=== PATIENT | female | born 1940 | race Caucasian/White ===

== ENCOUNTER → 2017-09-20 | Outpatient (CLI) | payer MEDICARE ==
[~2017-09-20] MED LIST: ACETAMINOPHEN-1 EAC1 PO; ADULT LOW DOSE81 MG PO; AMLODIPINE BESY10 MG PO; BACTRIM DS TAB1 EACH PO; BLADDER PILL; BLOOD PRESSURE; CHILDREN'S ASPI81 M1 PO; CILOXAN5 ML OP; COUMADIN 2 MG TA2 M1; FISH OIL 1,0001 EAC5 PO; FISH OIL 1,001000 M2 PO; FLEXERIL PO; FUROSEMIDE 20 M20 MG PO; HYDROCHLOROTHIA25 M1 PO; IBUPROFEN 200200 M1 PO; OMEPRAZOLE40 MG PO; PERCOCET 10-321 EACH; PERCOCET 5-3251 EACH PO; POTASSIUM CHLO10 ME1 PO; ROBAXIN 750 MG750 M1 PO; ROXICODONE5 M1 PO; SYNTHROID100 MC1 PO; ULTRAM 50MG TAB50 MG PO; VITAMIN E400 UNIT PO
== END ==
LOC: M.RAD 10:33
DX: Z12.31 Encounter for screening mammogram for malignant neoplasm of breast (principal)

== ENCOUNTER → 2017-10-10 | Outpatient (CLI) | payer MEDICARE ==
--- NOTE | 2017-10-26 12:43 | SLEEP ---
[address] [address] SLEEP STUDY REPORT Name: SALVADOR CARDOZA Room: [facility]#: [id number] Admission: 10/10/17 Attend Phys: MERRY BUSCH Discharge: Date of : 40 Report #: [id number] THIS REPORT FOR: //name// CC: Marcello OLIVAREZ This study has been reviewed in its entirety by a board certified sleep specialist DATE OF SERVICE: 10/10/2017 REFERRING PHYSICIAN: Marcello Mcdonnell DO/MERRY Harrington. TYPE OF STUDY: Home sleep apnea test. INDICATION: Obstructive sleep apnea. This was a home sleep apnea test. During the study, the total recording time was 519.4 minutes. During the study, 73 obstructive apneas and 18 hypopneas were recorded. No central apneas were recorded. The overall apnea-hypopnea index was 10.6 per hour. Please note the whole study was recorded in the supine position. OXIMETRY DATA: It was noted, the average O2 saturation was 90%. The lowest O2 saturation recorded was 79%. The patient spent 113.5 minutes with O2 saturation less than 90%. Average heart rate was 79.1 and snoring was recorded during the study. IMPRESSION: 1. The above home sleep apnea test confirms the presence of obstructive sleep apnea with apnea-hypopnea index of 10.6 and oxygen desaturation to a dread of 79%. 2. Prolonged hypoxemia during the sleep. It was noted the patient spent 113.5 minutes with O2 saturation less than 90%. RECOMMENDATIONS: 1. If the patient is not on CPAP therapy, I recommend considering in Lab attended sleep study with the purpose of CPAP titration to determine the CPAP pressure that controls the patient's obstructive sleep apnea. She may need oxygen after controlling her obstructive sleep apnea. 2. If the patient continues to be hypoxemic after treating sleep apnea , recommend evaluation for intrinsic lung disease. <ELECTRONICALLY SIGNED> By: Roxana Velazquez MD 10/26/17 1243 1154 1216Roxana Velazquez MD /nt
== END ==
LOC: M.SLEEPLAB 09-05 11:00
DX: G47.30 Sleep apnea, unspecified (principal)

== ENCOUNTER 2018-04-05 15:22 | Emergency (ER) | payer MEDICARE ==
[~2018-04-05] VITALS: Ht 160 cm; Wt 59.0 kg
[~2018-04-05 15:22] MED LIST changes: -BACTRIM DS TAB1 EACH PO; -CHILDREN'S ASPI81 M1 PO; -FISH OIL 1,001000 M2 PO; -HYDROCHLOROTHIA25 M1 PO; -OMEPRAZOLE40 MG PO
[2018-04-05 15:56] LABS: HEMATOCRIT 41.8 % (37.0-47.0); HEMOGLOBIN 13.9 gm/dL (12.0-15.0); MCH 29.1 pg (26.0-34.0); MCHC 33.2 g/dL (28.0-37.0); MCV 87.6 fL (80.0-100.0); MPV 6.8 fl. (7.2-11.1); NUCLEATED RBCS 0 /100WBC; PLATELET COUNT* 352 thou/uL (150-400); RBC 4.78 mil/uL (4.20-5.00); RDW-CV 15.8 % (10.5-14.5); WBC 14.3 thou/uL (4.0-11.0)
[2018-04-05 16:06] LABS: ANION GAP 7 mmol/L (7-16); BUN 14 mg/dL (7-18); CALCIUM 8.8 mg/dL (8.5-10.1); CHLORIDE 102 mmol/L (98-107); CO2 27 mmol/L (21-32); CREATININE 0.7 mg/dL (0.6-1.3); GLUCOSE 132 mg/dL (70-99); POTASSIUM 3.7 mmol/L (3.5-5.1); SODIUM 136 mmol/L (136-145)
[2018-04-05 16:13] LABS: ALBUMIN 3.1 g/dL (3.4-5.0); ALKALINE PHOSPHATASE 97 U/L (46-116); SGOT 14 U/L (15-37); SGPT 18 U/L (30-65); TOTAL BILIRUBIN 0.4 mg/dL (<0.1-1.0); TOTAL PROTEIN 7.1 g/dL (6.4-8.2); TROPONIN-I LEVEL <0.06 ng/mL (<0.06)
[2018-04-05 16:49] LABS: ABSOLUTE LYMPHOCYTES 1.6 thou/uL (0.8-5.3); ABSOLUTE MONOCYTES 1.4 thou/uL (0.0-1.2); ABSOLUTE NEUTROPHILS 11.3 thou/uL (1.6-8.1)
[2018-04-05 16:50] LABS: PLATELET ESTIMATE ADEQUATE
[2018-04-05] MEDS ORDERED: BACTRIM DS TAB1 EACH PO (17:44)
[2018-04-05 17:54] VITALS: BP 208/80
== END 2018-04-05 17:50 | disposition home or self-care (01) ==
LOC: M.ERS 15:22
PROVIDERS: Nurse Practitioner Family
DX: K12.2 Cellulitis and abscess of mouth (principal); I10 Essential (primary) hypertension; G47.30 Sleep apnea, unspecified; F17.210 Nicotine dependence, cigarettes, uncomplicated; Z88.1 Allergy status to other antibiotic agents; Z88.6 Allergy status to analgesic agent; Z88.5 Allergy status to narcotic agent

== ENCOUNTER → 2018-04-07 | Outpatient (CLI) | payer MEDICARE ==
--- NOTE | 2018-04-06 16:36 | EKG ---
[place] [address] ELECTROCARDIOGRAM REPORT Name: SALVADOR CARDOZA Room: [facility]#: [id number] Admission: Attend Phys: Dexter Matias MD Discharge: Date of : 40 Report #: [id number] THIS REPORT FOR: //name// [facility] ED Test Date: 2018-04-05 Test Time: 15:56:38 Pat Name: SALVADOR CARDOZA Department: Room: Gender: F Life Skills Instructor: EDWIGE : 1940 Requested By: Loraine Morrissey Order Number: [id number] MD: Jose Jones Measurements Intervals [place] Rate: 104 P: 79 RI: 148 QRS: 24 QRSD: 89 T: 20 QT: 331 QTc: 436 Interpretive Statements Sinus tachycardia LAE, consider biatrial enlargement Left ventricular hypertrophy Nonspecific T abnormalities, inferior leads Baseline wander in lead(s) II,III,aVR,aVL,aVF,V1,V2,V3,V4,V5,V6 Compared to ECG 02/28/2009 23:22:40 Left ventricular hypertrophy now present T-wave abnormality now present Electronically Signed On 04-06-2018 16:36:22 CDT by Jose Jones [email or web address] <ELECTRONICALLY SIGNED> By: Jose Jones MD, [facility] 04/06/18 1636 1556 1556 Jose Jones MD, [facility] /EPI
[~2018-04-07] MED LIST changes: +BACTRIM DS TAB1 EACH PO; +CHILDREN'S ASPI81 M1 PO; +FISH OIL 1,001000 M2 PO; +HYDROCHLOROTHIA25 M1 PO; +OMEPRAZOLE40 MG PO
[2018-04-07 12:40] VITALS: BP 159/81
== END | disposition home or self-care (01) ==
LOC: M.RAD 04-04 09:52
DX: M43.16 Spondylolisthesis, lumbar region (principal); M51.16 Intervertebral disc disorders with radiculopathy, lumbar region; M43.26 Fusion of spine, lumbar region; M48.061 Spinal stenosis, lumbar region without neurogenic claudication; M41.86 Other forms of scoliosis, lumbar region; M99.73 Connective tissue and disc stenosis of intervertebral foramina of lumbar region; M25.78 Osteophyte, vertebrae; Z98.890 Other specified postprocedural states; Z88.8 Allergy status to other drugs, medicaments and biological substances; Z79.899 Other long term (current) drug therapy

== ENCOUNTER → 2018-04-20 | Outpatient (CLI) | payer MEDICARE | LOC: M.MRI 13:13 | DX: M51.36 Other intervertebral disc degeneration, lumbar region (principal); E32.8 Other diseases of thymus; I10 Essential (primary) hypertension; G47.33 Obstructive sleep apnea (adult) (pediatric); Z87.891 Personal history of nicotine dependence; Z72.89 Other problems related to lifestyle ==

== ENCOUNTER 2018-05-17 16:51 | Inpatient (IN) | payer MEDICARE ==
[~2018-05-17] VITALS: Ht 160 cm; Wt 59.1 kg
--- NOTE | ~2018-05-17 | CON ---
[address] [address] CONSULTATION Name: SALVADOR CARDOZA Room: [address] IN [facility]#: [id number] Admission: 05/17/18 Attend Phys: Jamal Sims MD Discharge: Date of : 40 Report #: [id number] THIS REPORT FOR: //name// CC: Marcello Sims DATE OF SERVICE: 05/18/2018 REASON FOR CONSULTATION: Persistent GERD and noncardiac chest pain. HISTORY OF PRESENT ILLNESS: This is a 78-year-old female with history of GERD for which she has been taking Tums. She reports that she has been having a lot of problems with acid reflux and severe pain in her chest. She admits to smoking and drinking soda pops. She denies any dysphagia, diarrhea or constipation. Her last colonoscopy was done 11 years ago. PAST MEDICAL HISTORY: Significant for history of hypertension and muscle pains. ALLERGIES: SIGNIFICANT FOR CEPHALEXIN, HYDROCODONE, AND TYLENOL. SOCIAL HISTORY: The patient lives at home. Admits to drinking caffeine and smoking cigarettes. She may occasionally have an alcoholic beverage, but that is rare. FAMILY HISTORY: Noncontributory. PHYSICAL EXAMINATION: VITAL SIGNS: Blood pressure of 138/72, respirations 18, pulse 78, temperature 97.9. LUNGS: Clear. CARDIOVASCULAR: Regular. ABDOMEN: Soft, tender to palpation in the epigastric region. Bowel sounds are positive. LABORATORY DATA: Revealed sodium of 139, potassium 3.2, BUN is 15, creatinine 0.8, glucose 101. LFTs are within normal limits. Total bilirubin is 0.4. WBC is 7.1 with hemoglobin of 14.4 and platelets of 296. IMAGING: Chest x-ray was obtained on admission, which showed no acute cardiopulmonary abnormality. ASSESSMENT AND PLAN: The patient with noncardiac chest pain who has severe reflux symptoms and chest pain due to the same. [place] [address] CONSULTATION Name: AMAIRANI CARDOZAANNE Adrienne Room: [address] IN [facility]#: [id number] Admission: 05/17/18 Attend Phys: Jamal Sims MD Discharge: Date of : 40 Report #: [id number] endoscopy and make further recommendation based on findings. The patient is agreeable with plan. By: [id number] [id number] Polanco MD /nt
--- NOTE | ~2018-05-17 | PROC ---
[facility] [place] [facility] [address] [place] [address] PROCEDURE REPORT Name: SALVADOR CARDOZA Room: [address] IN M.R.#: [id number] Admission: 05/17/18 Attend Phys: Jamal Sims MD Discharge: 05/19/18 Date of : 40 Report #: [id number] THIS REPORT FOR: //name// For GI report, please see the Provation report in Perceptive 7 content. By: 0638Medical Records Staff SHRUTI /BLOSSOM
[~2018-05-17 16:51] MED LIST changes: -CHILDREN'S ASPI81 M1 PO; -FISH OIL 1,001000 M2 PO; -HYDROCHLOROTHIA25 M1 PO; -OMEPRAZOLE40 MG PO
[2018-05-17 17:05] VITALS: BP 191/104
[2018-05-17 17:51] LABS: ABSOLUTE BASOPHILS 0.1 thou/uL (0.0-0.2); ABSOLUTE EOSINOPHILS 0.2 thou/uL (0.0-0.7); ABSOLUTE LYMPHOCYTES 1.5 thou/uL (0.8-5.3); ABSOLUTE MONOCYTES 0.5 thou/uL (0.0-1.2); ABSOLUTE NEUTROPHILS 4.9 thou/uL (1.6-8.1); BASOPHILS 1.3 %; EOSINOPHILS 2.1 %; HEMATOCRIT 44.1 % (37.0-47.0); HEMOGLOBIN 14.4 gm/dL (12.0-15.0); LYMPHOCYTES 20.6 %; MCH 29.1 pg (26.0-34.0); MCHC 32.6 g/dL (28.0-37.0); MCV 89.1 fL (80.0-100.0); MONOCYTES 6.8 %; MPV 7.2 fl. (7.2-11.1); NUCLEATED RBCS 0 /100WBC; PLATELET COUNT* 296 thou/uL (150-400); POLYS 69.2 %; RBC 4.95 mil/uL (4.20-5.00); RDW-CV 15.8 % (10.5-14.5); WBC 7.1 thou/uL (4.0-11.0)
[2018-05-17 18:00] LABS: ANION GAP 5 mmol/L (7-16); BUN 15 mg/dL (7-18); CALCIUM 10.7 mg/dL (8.5-10.1); CHLORIDE 102 mmol/L (98-107); CO2 32 mmol/L (21-32); CREATININE 0.8 mg/dL (0.6-1.3); GLUCOSE 101 mg/dL (70-99); POTASSIUM 3.2 mmol/L (3.5-5.1); SODIUM 139 mmol/L (136-145)
[2018-05-17 18:01] LABS: PROTIME 10.3 Seconds (9.20-11.50)
[2018-05-17 18:11] LABS: ALBUMIN 3.7 g/dL (3.4-5.0); ALKALINE PHOSPHATASE 92 U/L (46-116); LIPASE 132 U/L (73-393); NT-PRO BRAIN NAT PEPTIDE 385 pg/mL (<300); SGOT 18 U/L (15-37); SGPT 22 U/L (30-65); TOTAL BILIRUBIN 0.4 mg/dL (<0.1-1.0); TOTAL PROTEIN 7.3 g/dL (6.4-8.2); TROPONIN-I LEVEL <0.06 ng/mL (<0.06)
[2018-05-17 19:51] VITALS: BP 196/102
[2018-05-17] MEDS ORDERED: FISH OIL 1,001000 M2 PO (19:56)
[2018-05-17] MEDS ORDERED: CHILDREN'S ASPI81 M1 PO (19:57)
[2018-05-17 19:58] VITALS: BP 183/92
[2018-05-18] VITALS: BP 150/66
[2018-05-18 02:49] LABS: CHOLESTEROL 139 mg/dL (<200); HDL CHOLESTEROL 70 mg/dL (>40); LDL CHOLESTEROL 57 mg/dL (<100); TRIGLYCERIDE 64 mg/dL (<150); VLDL 13 mg/dL (<40)
[2018-05-18 02:52] LABS: SERUM ASSESSMENT CLEAR
[2018-05-18 04:00] VITALS: BP 123/61
--- NOTE | 2018-05-18 05:23 | NUR ---
PT ADMITTED TO FLOOR FROM ED AT 1945 WITH CHEST PAIN AND HTN. AXO X4, UP AD KAYLA, AND NPO.
--- NOTE | 2018-05-18 06:04 | NUR ---
THIS RN REVIEWED AND AGREES WITH [facility] STUDENT DMITRIY TREVINO. BED IN LOW POSIITON, CALL LIGHT IN REACH. PT UP AD KAYLA AND APPEARS STABLE ON HER FEET. HOURLY ROUNDING COMPLETED FOR PT SAFETY.
--- NOTE | 2018-05-18 12:13 | NUR ---
MET WITH PT TO DISCUSS HOME SITUATION/DC PLANNING. PT LIVES ALONE, HAS SUPPORTIVE FAMILY. PT USES NO EQUIPMENT. SHE DENIES ANY DC NEEDS. WILL FOLLOW
[2018-05-18 12:28] VITALS: BP 138/72
[2018-05-18 16:00] VITALS: BP 140/65
--- NOTE | 2018-05-18 16:59 | EKG ---
[place] [address] ELECTROCARDIOGRAM REPORT Name: SALVADOR CARDOZA Room: [address] ADM IN M.R.#: [id number] Admission: 05/17/18 Attend Phys: Jamal Sims MD Discharge: Date of : 40 Report #: [id number] THIS REPORT FOR: //name// [facility] ED Test Date: 2018-05-17 Test Time: 17:28:34 Pat Name: SALVADOR CARDOZA Department: Room: [facility] Gender: F Industrial Radiographer: Yue REED : 1940 Requested By: Cruzito Rojo Order Number: [id number] MD: Hugo Thakur Measurements Intervals [place] Rate: 88 P: 68 PA: 173 QRS: 12 QRSD: 89 T: 56 QT: 358 QTc: 434 Interpretive Statements Sinus rhythm Left atrial enlargement Compared to ECG 04/05/2018 15:56:38 Sinus tachycardia no longer present Left ventricular hypertrophy no longer present T-wave abnormality no longer present Electronically Signed On 05-18-2018 16:59:25 CDT by Hugo Thakur [email or web address] <ELECTRONICALLY SIGNED> By: Hugo Thakur MD, FACC 05/18/18 1659 1728 1728 Hugo Thakur MD, FACC /EPI
[2018-05-18 19:50] VITALS: BP 159/81
[2018-05-19] VITALS: BP 180/89
[2018-05-19 01:12] VITALS: BP 162/79
--- NOTE | 2018-05-19 02:11 | NUR ---
SENIOR QUALITY METHODS SPECIALIST IN PLACE AND RUNNING NSR. UP AD KAYLA AND ON ROOM AIR. STARTED NPO AT 0000. HOURLY ROUNDING COMPLETED FOR PT SAFETY. CALL LIGHT IN REACH AND FALL PRECAUTIONS IN PLACE. WILL CONTINUE TO MONITOR.
[2018-05-19 04:15] VITALS: BP 166/84
[2018-05-19 04:30] VITALS: BP 162/79
--- NOTE | 2018-05-19 05:09 | NUR ---
THIS RN REVIEWED AND AGREES WITH DMITRIY TREVINO [facility] STUDENT. PATIENT WAS CAUGHT SMOKING IN HER BATHROOM. SECURITY WAS CALLED AND CIGARRETTES AND RELIEF COOK PLACED INTO PERSONAL BELONGING BAG AND SENT WITH SECURITY.
[2018-05-19 08:55] VITALS: BP 153/72
[2018-05-19] MEDS ORDERED: OMEPRAZOLE40 MG PO (09:03)
[2018-05-19] MEDS ORDERED: HYDROCHLOROTHIA25 M1 PO (09:03)
[2018-05-19 10:54] VITALS: BP 153/72
--- NOTE | 2018-05-19 11:09 | NUR ---
RECEIVED REPORT FROM KIM AND ASSUMED CARE OF PT @ 0303.PT IS A/OX4,VSS,TRACING ST ON THE MONITOR.ASSESSMENT CHARTED.PT COMPLETED EGD PROCEDURE.IV PATENT AND SALINE LOCKED.PT IS CALM AND COOPERATIVE WITH NO C/O PAIN AT TIME OF ASSESSMENT.PT IS UP AD KAYLA IN ROOM.PT LEFT RESTING IN BED WITH CALL LIGHT WITHIN REACH.WILL CONTINUE TO MONITOR. PT OK FOR DISCHARGE.PAPERWORK COMPLETED AND GIVEN TO PT.SCRIPTS GIVEN WITH EDUCATION.IV REMOVED.HEART MONITOR REMOVED AND RETURNED TO THE NURSING STATION.ALL PERSONAL BELONGINGS PACKED AND TAKEN WITH PT.BELONGINGS RECOVERED FROM SECURITY AND SIGNED FOR.
--- NOTE | 2018-05-24 10:09 | PATH ---
[address] [address] PATHOLOGY RPT PROCEDURE Name: SALVADOR BERGMAN Room: [address] IN M.R.#: [id number] Admission: 05/17/18 Date of : 40 Discharge: 05/19/18 Report #: [id number] Path Case #: [id number] [facility] Accession Number: [id number] . 01 Material submitted: . PART A: DUODENAL BIOPSY; RULE OUT CELIAC PART B: GASTRIC BIOPSY FOR H. PYLORI . 01 Clinician provided ICD-10: R07.9 . 01 Clinical history: . None provided . 02 Diagnosis: A. Duodenal biopsy: - Benign duodenal mucosa with prominence of Shirley's glands suggesting hyperplasia, negative for cryptitis, granulomas, significant intraepithelial lymphocytosis and dysplasia/adenomatous change (see comment). . B. Gastric biopsy: - Mild chronic and focal active gastritis typical of reactive gastropathy (chemical gastritis), negative for Helicobacter pylori organisms, granulomas and dysplasia. . (TIFFANIE:vjmbernie;05/22/2018) . . Special stain on B: H. pylori immuno AGA/05/23/2018 . 02 Comment: In the duodenal biopsy (A), there is no significant intraepithelial lymphocytosis and therefore celiac disease is unlikely. (TIFFANIE:pit 05/23/2018) . 02 Electronically signed: . Cezar Montana MD, Pathologist NPI- [id number] . 01 Gross description: . A. Received in formalin labeled "Salvador Bergman, duodenal biopsy, rule out celiac," is a single segment of robles soft tissue measuring 0.6 cm in maximum dimension. The specimen is entirely submitted in cassette A1. . B. Received in formalin labeled "Salvador Bergman, gastric biopsy for H. pylori," are 3 segments of robles soft tissue measuring 0.9 x 0.6 x 0.2 [place] [address] PATHOLOGY RPT PROCEDURE Name: SALVADOR BERGMAN N Room: [address]#: [id number] Admission: 05/17/18 Date of : 40 Discharge: 05/19/18 Report #: [id number] Path Case #: [id number] aggregate dimensions and ranging from 0.2 to 0.5 cm in maximum dimension. The specimen is submitted entirely in cassette B1. (TSD; 05/19/2018) TOB/TOB . 02 Pathologist provided ICD-10: K29.50 . 02 CPT . 052233, 916553, O68083 Specimen Comment: A courtesy copy of this report has been sent to Specimen Comment: [phone], , . Specimen Comment: Report sent to ,DR SALMERON / DR SIMMONS Specimen Comment: A duplicate report has been generated due to demographic updates. Performed at: [address] [facility] [address], [place], [place] [id number] MD Uriel Watts MD Phone: [phone] Performed at: [address] [facility] [address] [place], [place] [id number] MD Cezar Montana MD Phone: [phone]
== END 2018-05-19 11:20 | disposition home or self-care (01) | DRG 392 ==
LOC: M.ERS 16:51 → M.2W 18:21 → M.TBA-ER 18:21 → M.2W 19:55
PROVIDERS: Emergency Medicine; ADMIT Internal Medicine
PROC: 0DB68ZX Excision of Stomach, Via Natural or Artificial Opening Endoscopic, Diagnostic (ICD-10-PCS; principal; 2018-05-19)
DX: K21.0 Gastro-esophageal reflux disease with esophagitis (principal); I16.1 Hypertensive emergency; F17.210 Nicotine dependence, cigarettes, uncomplicated; E03.9 Hypothyroidism, unspecified; K29.70 Gastritis, unspecified, without bleeding; K29.80 Duodenitis without bleeding; I10 Essential (primary) hypertension; Z98.42 Cataract extraction status, left eye; Z98.41 Cataract extraction status, right eye; Z88.6 Allergy status to analgesic agent; Z88.8 Allergy status to other drugs, medicaments and biological substances; Z82.49 Family history of ischemic heart disease and other diseases of the circulatory system; Z79.899 Other long term (current) drug therapy; Z28.21 Immunization not carried out because of patient refusal

== ENCOUNTER → 2018-07-26 | Outpatient (CLI) | payer MEDICARE ==
[~2018-07-26] MED LIST changes: +CHILDREN'S ASPI81 M1 PO; +FISH OIL 1,001000 M2 PO; +HYDROCHLOROTHIA25 M1 PO; +OMEPRAZOLE40 MG PO
== END ==
LOC: M.ULTRA 10:08
DX: N63.21 Unspecified lump in the left breast, upper outer quadrant (principal); N63.10 Unspecified lump in the right breast, unspecified quadrant; R92.2 Inconclusive mammogram

== ENCOUNTER → 2018-10-05 | Outpatient (CLI) | payer MEDICARE | LOC: M.RAD 15:16 | DX: Z12.31 Encounter for screening mammogram for malignant neoplasm of breast (principal) ==

== ENCOUNTER 2018-11-25 07:30 | Emergency (ER) | payer MEDICARE ==
[~2018-11-25] VITALS: Ht 160 cm; Wt 54.4 kg
[~2018-11-25 07:30] MED LIST changes: -SYNTHROID100 MC1 PO; +SYNTHROID25 MC1 PO
[2018-11-25] MEDS ORDERED: MAGNESIUM400 MG PO (07:43)
[2018-11-25] MEDS ORDERED: OCUVITE ADULT1 EAC1 PO (07:43)
[2018-11-25] MEDS ORDERED: VESICARE10 M1 PO (07:43)
[2018-11-25 08:23] LABS: ABSOLUTE EOSINOPHILS 0.4 thou/uL (0.0-0.7); ABSOLUTE LYMPHOCYTES 1.2 thou/uL (0.8-5.3); ABSOLUTE MONOCYTES 0.5 thou/uL (0.0-1.2); ABSOLUTE NEUTROPHILS 3.7 thou/uL (1.6-8.1); BASOPHILS 0.2 %; EOSINOPHILS 6.3 %; HEMOGLOBIN 14.9 gm/dL (12.0-15.0); LYMPHOCYTES 20.8 %; MCH 28.1 pg (26.0-34.0); MCHC 33.1 g/dL (28.0-37.0); MCV 84.9 fL (80.0-100.0); MONOCYTES 8.7 %; MPV 7.2 fl. (7.2-11.1); NUCLEATED RBCS 0 /100WBC; PLATELET COUNT* 324 thou/uL (150-400); RDW-CV 15.9 % (10.5-14.5); WBC 5.8 thou/uL (4.0-11.0)
[2018-11-25] MEDS ORDERED: BACTRIM DS TAB1 EACH PO (08:43)
[2018-11-25 08:49] LABS: CALCIUM 9.3 mg/dL (8.5-10.1); CREATININE 1.3 mg/dL (0.6-1.3); POTASSIUM 4.4 mmol/L (3.5-5.1)
[2018-11-25 08:50] VITALS: BP 137/69
== END 2018-11-25 08:50 | disposition home or self-care (01) ==
LOC: M.ERS 07:30
PROVIDERS: Personal Emergency Response Attendant
DX: S50.11XA Contusion of right forearm, initial encounter (principal); I80.8 Phlebitis and thrombophlebitis of other sites; F17.210 Nicotine dependence, cigarettes, uncomplicated; I10 Essential (primary) hypertension; G47.30 Sleep apnea, unspecified; Z88.1 Allergy status to other antibiotic agents; Z88.6 Allergy status to analgesic agent; Z88.8 Allergy status to other drugs, medicaments and biological substances; X50.1XXA Overexertion from prolonged static or awkward postures, initial encounter; Y92.89 Other specified places as the place of occurrence of the external cause; Y93.89 Activity, other specified; Y99.8 Other external cause status

== ENCOUNTER 2019-02-26 10:11 | Inpatient (IN) | payer MEDICARE ==
[~2019-02-26] VITALS: Ht 160 cm; Wt 57.2 kg
[~2019-02-26 10:11] MED LIST changes: +MAGNESIUM400 MG PO; +OCUVITE ADULT1 EAC1 PO; +VESICARE10 M1 PO
[2019-02-26 10:16] VITALS: BP 154/73
[2019-02-26] MEDS ORDERED: VESICARE10 M1 PO (10:44)
[2019-02-26] MEDS ORDERED: MAGOX 400400 MG PO (10:44)
[2019-02-26] MEDS ORDERED: OXYBUTYNIN ER PO (10:45)
[2019-02-26] MEDS ORDERED: NITROFURANTOIN100 MG PO (10:45)
[2019-02-26 10:55] LABS: HEMATOCRIT 39.9 % (37.0-47.0); HEMOGLOBIN 13.3 gm/dL (12.0-15.0); MCH 28.5 pg (26.0-34.0); MCHC 33.3 g/dL (28.0-37.0); MCV 85.6 fL (80.0-100.0); MPV 7.4 fl. (7.2-11.1); NUCLEATED RBCS 0 /100WBC; PLATELET COUNT* 280 thou/uL (150-400); RBC 4.66 mil/uL (4.20-5.00); RDW-CV 16.8 % (10.5-14.5); WBC 9.8 thou/uL (4.0-11.0)
[2019-02-26 11:02] LABS: CALCIUM 9.2 mg/dL (8.5-10.1); CREATININE 1.2 mg/dL (0.6-1.3); POTASSIUM 4.2 mmol/L (3.5-5.1)
[2019-02-26 11:07] LABS: ALBUMIN 3.4 g/dL (3.4-5.0)
[2019-02-26 11:54] LABS: ABSOLUTE BASOPHILS 0.1 thou/uL (0.0-0.2); ABSOLUTE EOSINOPHILS 0.2 thou/uL (0.0-0.7); ABSOLUTE LYMPHOCYTES 0.9 thou/uL (0.8-5.3); ABSOLUTE MONOCYTES 0.5 thou/uL (0.0-1.2); ABSOLUTE NEUTROPHILS 8.1 thou/uL (1.6-8.1); PLATELET ESTIMATE ADEQUATE
[2019-02-26 12:08] LABS: TOTAL BILIRUBIN 0.3 mg/dL (<0.1-1.0); TOTAL PROTEIN 7.1 g/dL (6.4-8.2)
[2019-02-26 13:13] LABS: URINE BILIRUBIN NEGATIVE (Negative); URINE BLOOD NEGATIVE (Negative); URINE CLARITY CLEAR; URINE COLOR YELLOW; URINE GLUCOSE-RANDOM NEGATIVE (Negative); URINE KETONES TRACE (Negative); URINE LEUKOCYTES-REFLEX NEGATIVE (Negative); URINE NITRITE-REFLEX NEGATIVE (Negative); URINE PROTEIN NEGATIVE (Negative); URINE UROBILINOGEN 0.2 E.U./dl (0.2-1.0)
[2019-02-26 15:47] VITALS: BP 112/55
[2019-02-26 16:30] VITALS: BP 120/54
[2019-02-26 16:35] VITALS: BP 132/71
[2019-02-26 20:00] VITALS: BP 132/74
[2019-02-26 23:43] VITALS: BP 120/42
[2019-02-27 04:27] VITALS: BP 106/47
[2019-02-27 08:00] VITALS: BP 132/65
--- NOTE | 2019-02-27 10:29 | EKG ---
[place] [address] ELECTROCARDIOGRAM REPORT Name: SALVADOR CARDOZA Room: [address] ADM IN M.R.#: [id number] Admission: 02/26/19 Attend Phys: Fritz Jensen Discharge: Date of : 40 Report #: [id number] THIS REPORT FOR: //name// [facility] ED Test Date: 2019-02-26 Test Time: 10:57:13 Pat Name: SALVADOR CARDOZA Department: Room: [facility] Gender: F Compensation Programs Manager: : 1940 Requested By: Ladarius Werner Order Number: [id number] MD: Hugo Thakur Measurements Intervals [place] Rate: 82 P: 72 ND: 175 QRS: 39 QRSD: 97 T: 56 QT: 399 QTc: 466 Interpretive Statements Sinus rhythm Compared to ECG 05/17/2018 17:28:34 No significant changes Electronically Signed On 02-27-2019 10:29:19 CDT by Hugo Thakur [email or web address] <ELECTRONICALLY SIGNED> By: Hugo Thakur MD, [facility] 02/27/19 1029 1057 1057 Hugo Thakur MD, FAC /EPI
[2019-02-27 12:00] VITALS: BP 150/71
[2019-02-27 16:00] VITALS: BP 150/64
[2019-02-27 20:45] VITALS: BP 177/67
[2019-02-28] VITALS: BP 164/82
[2019-02-28 04:00] VITALS: BP 170/91
[2019-02-28 07:30] VITALS: BP 166/84
[2019-02-28 12:00] VITALS: BP 161/81
[2019-02-28] MEDS ORDERED: LEVAQUIN 500 M500 M3 PO (12:31)
[2019-02-28] MEDS ORDERED: TYLENOL325 M1 PO (12:39)
[2019-02-28 12:45] VITALS: BP 161/81
== END 2019-02-28 13:47 | disposition home or self-care (01) | DRG 543 ==
LOC: M.ERS 10:11 → M.TBA-ER 11:49 → M.2W 11:49
PROVIDERS: Physician Assistant; ADMIT Internal Medicine
DX: M80.08XA Age-related osteoporosis with current pathological fracture, vertebra(e), initial encounter for fracture (principal); N39.0 Urinary tract infection, site not specified; L03.818 Cellulitis of other sites; G47.30 Sleep apnea, unspecified; N39.41 Urge incontinence; R33.9 Retention of urine, unspecified; K21.0 Gastro-esophageal reflux disease with esophagitis; E03.9 Hypothyroidism, unspecified; F17.210 Nicotine dependence, cigarettes, uncomplicated; I80.8 Phlebitis and thrombophlebitis of other sites; K29.70 Gastritis, unspecified, without bleeding; K29.80 Duodenitis without bleeding; T14.8XXA Other injury of unspecified body region, initial encounter; X58.XXXA Exposure to other specified factors, initial encounter; I10 Essential (primary) hypertension; Z98.41 Cataract extraction status, right eye; Z98.42 Cataract extraction status, left eye; Z79.82 Long term (current) use of aspirin; Z88.8 Allergy status to other drugs, medicaments and biological substances; Z88.6 Allergy status to analgesic agent; Z82.49 Family history of ischemic heart disease and other diseases of the circulatory system; Y93.89 Activity, other specified; Y92.89 Other specified places as the place of occurrence of the external cause; Y99.8 Other external cause status

== ENCOUNTER 2019-08-30 14:51 | Inpatient (IN) | payer MEDICARE ==
[~2019-08-30] VITALS: Ht 160 cm; Wt 54.4 kg
[~2019-08-30 14:51] MED LIST changes: +LEVAQUIN 500 M500 M3 PO; +MAGOX 400400 MG PO; +NITROFURANTOIN100 MG PO; +OXYBUTYNIN ER PO; +TYLENOL325 M1 PO
[2019-08-30 14:54] VITALS: BP 179/96
[2019-08-30 16:01] LABS: HEMOGLOBIN 13.3 gm/dL (12.0-15.0); MCHC 33.3 g/dL (28.0-37.0); MCV 84.1 fL (80.0-100.0); MPV 7.2 fl. (7.2-11.1); NUCLEATED RBCS 0 /100WBC; PLATELET COUNT* 265 thou/uL (150-400); RBC 4.75 mil/uL (4.20-5.00); WBC 15.7 thou/uL (4.0-11.0)
[2019-08-30 16:17] LABS: CALCIUM 8.6 mg/dL (8.5-10.1); CREATININE 0.9 mg/dL (0.6-1.3); POTASSIUM 3.9 mmol/L (3.5-5.1)
[2019-08-30 16:24] LABS: PROTIME 10.7 Seconds (9.20-11.50)
[2019-08-30 16:27] LABS: ABSOLUTE LYMPHOCYTES 1.4 thou/uL (0.8-5.3); ABSOLUTE MONOCYTES 0.9 thou/uL (0.0-1.2); ABSOLUTE NEUTROPHILS 13.3 thou/uL (1.6-8.1); PLATELET ESTIMATE ADEQUATE
[2019-08-30 16:29] LABS: ALBUMIN 3.1 g/dL (3.4-5.0); TOTAL BILIRUBIN 0.8 mg/dL (<0.1-1.0)
[2019-08-30 18:10] VITALS: BP 173/73
[2019-08-30 18:45] VITALS: BP 163/69
[2019-08-30 21:50] VITALS: BP 149/79
[2019-08-31 04:29] LABS: ALBUMIN 2.6 g/dL (3.4-5.0); CALCIUM 7.8 mg/dL (8.5-10.1); CREATININE 0.7 mg/dL (0.6-1.3); POTASSIUM 3.7 mmol/L (3.5-5.1); TOTAL BILIRUBIN 0.8 mg/dL (<0.1-1.0); TOTAL PROTEIN 6.1 g/dL (6.4-8.2)
[2019-08-31 04:35] LABS: ABSOLUTE EOSINOPHILS 0.1 thou/uL (0.0-0.7); ABSOLUTE LYMPHOCYTES 1.1 thou/uL (0.8-5.3); ABSOLUTE MONOCYTES 1.1 thou/uL (0.0-1.2); ABSOLUTE NEUTROPHILS 9.4 thou/uL (1.6-8.1); BASOPHILS 0.3 %; EOSINOPHILS 0.6 %; HEMATOCRIT 36.4 % (37.0-47.0); HEMOGLOBIN 12.2 gm/dL (12.0-15.0); LYMPHOCYTES 9.8 %; MCH 28.1 pg (26.0-34.0); MCHC 33.5 g/dL (28.0-37.0); MCV 83.9 fL (80.0-100.0); MPV 7.7 fl. (7.2-11.1); NUCLEATED RBCS 0 /100WBC; PLATELET COUNT* 221 thou/uL (150-400); POLYS 80.3 %; RBC 4.33 mil/uL (4.20-5.00); RDW-CV 16.6 % (10.5-14.5); WBC 11.7 thou/uL (4.0-11.0)
[2019-08-31 08:45] VITALS: BP 153/81
--- NOTE | 2019-08-31 09:42 | EKG ---
[place] [address] ELECTROCARDIOGRAM REPORT Name: SALVADOR CARDOZA Room: [address] ADM IN M.R.#: [id number] Admission: 08/30/19 Attend Phys: Khanh Turpin Discharge: Date of : 40 Date of Service: 08/30/19 1536 Report #: [id number] THIS REPORT FOR: //name// [facility] ED Test Date: 2019-08-30 Test Time: 15:36:35 Pat Name: SALVADOR CARDOZA Department: Room: [facility] Gender: F Correctional Maintenance Technician: : 1940 Requested By: Cruzito Rojo Order Number: [id number] MD: Jose Jones Measurements Intervals [place] Rate: 103 P: 85 [place]: 171 QRS: 64 QRSD: 90 T: 47 QT: 352 QTc: 461 Interpretive Statements Sinus tachycardia Biatrial enlargement Compared to ECG 02/26/2019 10:57:13 Atrial abnormality now present Sinus rate has increased Electronically Signed On 08-31-2019 9:41:15 MOBILE LAB TECHNICIAN by Jose Jones [email or web address] <ELECTRONICALLY SIGNED> By: Jose Jones MD, [facility] 08/31/19 0941 1536 1536 Jose Jones MD, [facility] /EPI
--- NOTE | 2019-08-31 13:51 | EKG ---
[place] [address] ELECTROCARDIOGRAM REPORT Name: SALVADOR CARDOZA Room: [address] ADM IN M.R.#: [id number] Admission: 08/30/19 Attend Phys: Khanh Turpin Discharge: Date of : 40 Date of Service: 08/31/19 1219 Report #: [id number] THIS REPORT FOR: //name// [facility] Test Date: 2019-08-31 Test Time: 12:19:04 Pat Name: SALVADOR SONY Department: Room: [address] Gender: F [employer]: : 1940 Requested By: Khanh Turpin Order Number: [id number] Shanika MD: Jose Jones Measurements Intervals [place] Rate: 99 P: 84 [place]: 157 QRS: 59 QRSD: 85 T: 68 QT: 344 QTc: 442 Interpretive Statements Sinus rhythm Consider left atrial enlargement Consider left ventricular hypertrophy Compared to ECG 08/30/2019 15:36:35 Sinus tachycardia no longer present Electronically Signed On 08-31-2019 13:50:07 GROUND SYSTEMS ENGINEER by Jose Jones [email or web address] <ELECTRONICALLY SIGNED> By: Jose Jones MD, FAC 08/31/19 1350 1219 1219 Jose Jones MD, [facility] /EPI
[2019-08-31 17:30] VITALS: BP 158/69
[2019-08-31 20:05] VITALS: BP 134/66
[2019-09-01] VITALS: BP 135/77
[2019-09-01 03:00] VITALS: BP 125/54
[2019-09-01 04:25] LABS: ABSOLUTE LYMPHOCYTES 0.8 thou/uL (0.8-5.3); ABSOLUTE MONOCYTES 1.2 thou/uL (0.0-1.2); ABSOLUTE NEUTROPHILS 8.3 thou/uL (1.6-8.1); BASOPHILS 0.1 %; HEMOGLOBIN 10.5 gm/dL (12.0-15.0); LYMPHOCYTES 7.9 %; MCH 28.3 pg (26.0-34.0); MCHC 33.9 g/dL (28.0-37.0); MCV 83.6 fL (80.0-100.0); MONOCYTES 11.7 %; MPV 7.3 fl. (7.2-11.1); NUCLEATED RBCS 0 /100WBC; PLATELET COUNT* 181 thou/uL (150-400); POLYS 80.3 %; RBC 3.71 mil/uL (4.20-5.00); RDW-CV 16.4 % (10.5-14.5); WBC 10.3 thou/uL (4.0-11.0)
[2019-09-01 04:58] LABS: ALBUMIN 2.1 g/dL (3.4-5.0); CALCIUM 8.2 mg/dL (8.5-10.1); CREATININE 0.5 mg/dL (0.6-1.3); POTASSIUM 4.1 mmol/L (3.5-5.1); TOTAL BILIRUBIN 0.6 mg/dL (<0.1-1.0); TOTAL PROTEIN 5.5 g/dL (6.4-8.2)
[2019-09-01 08:00] VITALS: BP 120/57
--- NOTE | 2019-09-01 08:05 | OP ---
[facility] [address] [place] [address] OPERATIVE REPORT Name: SALVADOR CARDOZA Room: [address] IN .R.#: [id number] Admission: 08/30/19 Attend Phys: Fritz Jensen Discharge: Date of : 40 Report #: [id number] THIS REPORT FOR: //name// cc: Marcello Mcdonnell Bradley L. DO ~ THIS REPORT FOR: //name// CC: Marcello Turpin DATE OF SERVICE: 08/31/2019 PREOPERATIVE DIAGNOSIS: Comminuted intertrochanteric hip fracture on the right side with history of multiple other fractures. POSTOPERATIVE DIAGNOSES: 1. Comminuted intertrochanteric hip fracture on the right side with history of multiple other fractures. 2. The patient is a tobacco user as well, chronic. SURGERY PERFORMED: Lyndsay long gamma nail size 11 x 125 x 380. SURGEON: Allen Jaquez DO QUALITY CHECKER: Hong Cheung DO. SECOND SALES OFFICE ASSISTANT: Dariel Salazar DO ANESTHESIA: General anesthetic. ANTIBIOTICS: The patient has been on chronic Levaquin antibiotics. SPECIMENS: None. COMPLICATIONS: None. DRAINS: None. ESTIMATED BLOOD LOSS: 50 mL. GROSS FINDINGS: Prior to surgery, the patient demonstrated a very comminuted intertrochanteric hip fracture. A large posterior fracture fragment was identified. Placement of the nail demonstrated near anatomic reduction AP and lateral views. SURGERY IN DETAIL: The patient was taken to the operating room. While on her [address] [place] [address] OPERATIVE REPORT Name: SALVADOR CARDOZA Adrienne Room: [address] IN M.R.#: [id number] Admission: 08/30/19 Attend Phys: Fritz Jensen Discharge: Date of : 40 Report #: [id number] bed, given a general anesthetic and transferred over onto the [place] fracture table. At this point in time, using C-arm guidance, I did direct the C-arm throughout surgery, but initially did a closed reduction using the table to help reduce the fracture verified in AP and lateral views. At this point in time, she underwent a chlorhexidine prep and sterile draping for right hip surgery and femur surgery. Timeout was called and verified by everyone in the room for the right hip and femur. At this point in time, a starting incision made just proximal to the greater trochanter, but slightly posterior to the medial aspect that with a 10 blade scalpel through skin and subcutaneous tissues, the tensor and IT band area. Blunt dissection was carried down to the greater trochanter followed with a starting guidewire, which was appropriately viewed in both AP and lateral views and then the starting reamer was applied. Next, I placed a long guidewire down into the femoral canal down to the level of the knee, measured the guidewire for the length of the IM nail, 388 nail was selected. I appropriately reamed the shaft to 13 mm and then placed 380 x 125 x 11 mm gamma nail over the guidewire inserting into appropriate position and the guidewire was removed. The lag screw guide was next placed and at this point in time, the incision was made. The lag screw targeting guide was placed in the tissue down to the level of bone. Appropriately the guidewire was drilled. It was measured and I selected 100 lag screws. Appropriately reamed it and placed it with a compression screw tightening the fracture and then placed in the set screw. Once the proximal end was securely fixated, I removed all the proximal guide, I went down to the distal screws. At this point in time from a lateral and a freehand targeting, I did make 2 screw placements distally into the patient's femur. Appropriately, they were drilled, measured and screws were applied. The patient did have copious irrigation prior to closure. Now at this point in time, the deep layers were closed with 0 Vicryl in [id number] fashion, subcutaneous tissues with 2-0 Vicryl followed by cornel in the skin, Mepilex dressings and ABDs proximally. The patient was transferred off the table, taken to recovery in stable condition. I attest I was present for all critical aspects of surgery. Needle, instrument, sponge counts correct. <ELECTRONICALLY SIGNED> By: Allen Jaquez DO 09/01/19 0805 1557 [email or web address] Jaquez DO /nt
[2019-09-01 20:20] VITALS: BP 118/64
[2019-09-02 04:00] VITALS: BP 130/60
[2019-09-02 04:05] LABS: ABSOLUTE BASOPHILS 0.1 thou/uL (0.0-0.2); ABSOLUTE EOSINOPHILS 0.1 thou/uL (0.0-0.7); ABSOLUTE MONOCYTES 1.2 thou/uL (0.0-1.2); ABSOLUTE NEUTROPHILS 6.6 thou/uL (1.6-8.1); BASOPHILS 0.7 %; EOSINOPHILS 0.6 %; HEMATOCRIT 30.1 % (37.0-47.0); HEMOGLOBIN 10.3 gm/dL (12.0-15.0); LYMPHOCYTES 11.4 %; MCH 28.3 pg (26.0-34.0); MCHC 34.1 g/dL (28.0-37.0); MCV 83.2 fL (80.0-100.0); MONOCYTES 13.7 %; MPV 7.1 fl. (7.2-11.1); NUCLEATED RBCS 0 /100WBC; PLATELET COUNT* 209 thou/uL (150-400); POLYS 73.6 %; RBC 3.62 mil/uL (4.20-5.00); RDW-CV 15.7 % (10.5-14.5)
[2019-09-02 04:24] LABS: ALBUMIN 2.1 g/dL (3.4-5.0); CALCIUM 8.1 mg/dL (8.5-10.1); CREATININE 0.6 mg/dL (0.6-1.3); POTASSIUM 3.8 mmol/L (3.5-5.1); TOTAL BILIRUBIN 0.5 mg/dL (<0.1-1.0); TOTAL PROTEIN 5.6 g/dL (6.4-8.2)
[2019-09-02 07:20] VITALS: BP 137/62
[2019-09-02 15:51] VITALS: BP 159/89
[2019-09-02 19:45] VITALS: BP 133/69
[2019-09-03 04:00] VITALS: BP 145/71
[2019-09-03 04:22] LABS: ABSOLUTE BASOPHILS 0.1 thou/uL (0.0-0.2); ABSOLUTE EOSINOPHILS 0.1 thou/uL (0.0-0.7); ABSOLUTE LYMPHOCYTES 1.1 thou/uL (0.8-5.3); ABSOLUTE MONOCYTES 1.6 thou/uL (0.0-1.2); ABSOLUTE NEUTROPHILS 8.2 thou/uL (1.6-8.1); BASOPHILS 0.5 %; HEMATOCRIT 30.9 % (37.0-47.0); HEMOGLOBIN 10.4 gm/dL (12.0-15.0); LYMPHOCYTES 9.8 %; MCH 28.3 pg (26.0-34.0); MCHC 33.7 g/dL (28.0-37.0); MCV 83.8 fL (80.0-100.0); MONOCYTES 14.4 %; NUCLEATED RBCS 0 /100WBC; PLATELET COUNT* 229 thou/uL (150-400); POLYS 74.3 %; RBC 3.68 mil/uL (4.20-5.00); RDW-CV 16.1 % (10.5-14.5)
[2019-09-03 04:36] LABS: CREATININE 0.7 mg/dL (0.6-1.3)
[2019-09-03 07:15] VITALS: BP 127/61
[2019-09-03 21:45] VITALS: BP 166/70
[2019-09-04 01:08] LABS: URINE BILIRUBIN NEGATIVE (Negative); URINE BLOOD 3+ (Negative); URINE CLARITY CLEAR; URINE COLOR YELLOW; URINE GLUCOSE-RANDOM NEGATIVE (Negative); URINE KETONES NEGATIVE (Negative); URINE LEUKOCYTES 3+ (Negative); URINE NITRITE NEGATIVE (Negative); URINE PROTEIN NEGATIVE (Negative); URINE SPECIFIC GRAVITY <= 1.005 (1.005-1.030); URINE UROBILINOGEN 0.2 E.U./dl (0.2-1.0)
[2019-09-04 03:38] LABS: CASTS None Seen /LPF (None Seen); SQUAMOUS >10 Many /LPF (0-3)
[2019-09-04 03:39] LABS: URINE RBC 0-2 Rare /HPF (0-2)
[2019-09-04 03:40] LABS: CRYSTALS None Seen /LPF (None Seen)
[2019-09-04 09:41] VITALS: BP 143/68
[2019-09-04 11:16] VITALS: BP 143/68
[2019-09-04] MEDS ORDERED: ELIQUIS2.5 MG PO (11:20)
[2019-09-04] MEDS ORDERED: COLACE100 MG PO (11:20)
[2019-09-04] MEDS ORDERED: LIDODERM1 EACH TRANSDERM (11:21)
[2019-09-04] MEDS ORDERED: MIRALAX119 GM PO (11:21)
[2019-09-04] MEDS ORDERED: OXYBUTYNIN 5 MG5 M1 PO (11:22)
[2019-09-04] MEDS ORDERED: TRAMADOL 50 MG50 MG PO (11:23)
[2019-09-04] MEDS ORDERED: LEVAQUIN 500 M500 M3 PO (11:24)
[2019-09-04] MEDS ORDERED: OXYCODONE HCL 55 MG PO (11:26)
[2019-09-04 16:00] VITALS: BP 154/70
== END 2019-09-04 18:51 | DRG 854 ==
LOC: M.ERS 14:51 → M.TBA-ER 16:53 → M.ORTHSURG 16:53
PROVIDERS: Emergency Medicine; Internal Medicine; ADMIT Internal Medicine
PROC: 0QS606Z Reposition Right Upper Femur with Intramedullary Internal Fixation Device, Open Approach (ICD-10-PCS; principal; 2019-08-31)
PROC: 5A09357 Assistance with Respiratory Ventilation, Less than 24 Consecutive Hours, Continuous Positive Airway Pressure (ICD-10-PCS; principal; 2019-08-31)
DX: A41.50 Gram-negative sepsis, unspecified (principal); N39.0 Urinary tract infection, site not specified; E44.0 Moderate protein-calorie malnutrition; M80.851A Other osteoporosis with current pathological fracture, right femur, initial encounter for fracture; Z96.651 Presence of right artificial knee joint; F17.210 Nicotine dependence, cigarettes, uncomplicated; N31.9 Neuromuscular dysfunction of bladder, unspecified; I10 Essential (primary) hypertension; G47.33 Obstructive sleep apnea (adult) (pediatric); E03.9 Hypothyroidism, unspecified; M19.90 Unspecified osteoarthritis, unspecified site; K21.9 Gastro-esophageal reflux disease without esophagitis; Z60.2 Problems related to living alone; Z82.49 Family history of ischemic heart disease and other diseases of the circulatory system; Z99.81 Dependence on supplemental oxygen; Z68.21 Body mass index [BMI] 21.0-21.9, adult; Z98.42 Cataract extraction status, left eye; Z98.41 Cataract extraction status, right eye; Z79.899 Other long term (current) drug therapy; Z79.82 Long term (current) use of aspirin; Z88.1 Allergy status to other antibiotic agents; Z88.5 Allergy status to narcotic agent; Z72.89 Other problems related to lifestyle

== ENCOUNTER 2019-09-04 17:44 | Inpatient (IN) | payer MEDICARE ==
[~2019-09-04] VITALS: Ht 160 cm; Wt 54.0 kg
[~2019-09-04 17:44] MED LIST changes: +COLACE100 MG PO; +ELIQUIS2.5 MG PO; +LIDODERM1 EACH TRANSDERM; +MIRALAX119 GM PO; +OXYBUTYNIN 5 MG5 M1 PO; +OXYCODONE HCL 55 MG PO; +TRAMADOL 50 MG50 MG PO
[2019-09-04 19:10] VITALS: BP 142/61
--- NOTE | 2019-09-04 21:00 | NUR ---
PT ARRIVED TO FLOOR BY BED AT SHIFT CHANGE. PT ALERT AND ORIENTED X4, POLITE AND COOPERATIVE WITH CARES. DAUGHTER AND SIGNIFICANT OTHER AT BEDSIDE. ADMISSION DATABASES COMPLETED AND ADMISSION PAPERWORK SIGNED AND PLACED IN CHART. DRESSING TO RIGHT HIP C/D/I. NO SKIN ISSUES NOTED. PM MEDICATIONS GIVEN, PT TAKES WHOLE ALL AT ONCE WITH WATER. PRN PAIN MEDICATION GIVEN AT HS. HOURLY ROUNDING IN PROGRESS, WILL CONTINUE TO MONITOR.
--- NOTE | 2019-09-05 04:48 | NUR ---
ASSUMED PT CARE AT 1930. PT ALERT AND ORIENTED X4, POLITE AND COOPERATIVE WITH CARES. PT UP TO BSC WITH MAX ASSIST OF 2 TO VOID. PT VERY SLOW TRANSFERRING, NEEDS SUBSTANTIAL CUEING. WBAT TO RIGHT LEG. PT VOIDED AN ADDITIONAL THREE TIMES THIS SHIFT PER BEDPAN. PT TURNED WHEN AGREEABLE. DRESSING TO RIGHT HIP C/D/I. PT WEARS HOME CPAP AT NIGHT. USES CALL LIGHT APPROPRIATELY. BED ALARM ON FOR SAFETY. HOURLY ROUNDING IN PROGRESS, WILL CONTINUE TO MONITOR.
[2019-09-05 06:10] LABS: HEMATOCRIT 30.6 % (37.0-47.0); HEMOGLOBIN 10.3 gm/dL (12.0-15.0); MCH 27.9 pg (26.0-34.0); MCHC 33.8 g/dL (28.0-37.0); MCV 82.7 fL (80.0-100.0); MPV 6.6 fl. (7.2-11.1); RBC 3.7 mil/uL (4.20-5.00); RDW-CV 16.2 % (10.5-14.5); WBC 10.1 thou/uL (4.0-11.0)
[2019-09-05 06:17] LABS: CALCIUM 8.3 mg/dL (8.5-10.1); CREATININE 0.7 mg/dL (0.6-1.3); POTASSIUM 4.1 mmol/L (3.5-5.1)
[2019-09-05 08:34] VITALS: BP 157/79
--- NOTE | 2019-09-05 13:33 | NUR ---
Nutrition: Pt admitted to rehab with Rt hip FX. Osteoporosis, smoker. Regular diet, eating well. Wt: 115#. Meds noted, takes MVI and fish oil. Consult received for wt loss. Per [employer], pt's usual wt is 120-130#. Today's wt is recorded as 115#. Alb 2.1, prealb 9.8. RD will order Ensure MAX protein for added kcals and protein intake. Mild to moderate risk. Will follow weekly.
--- NOTE | 2019-09-05 16:30 | NUR ---
PT.IS ALERT AND ORIENTED. DAUGHTER,ANDRE, AT BEDSIDE. PT.FELL AT HOME, HAD SURGERY. CAME TO INPT.REHAB POST ACUTE HOSPITAL STAY. CM DISCUSSED INPT.REHAB, POTENTIAL LOS, ETC. PRIOR TO FALL AT HOME, SHE WAS INDEPENDENT AND FAIRLY ACTIVE. STILL DROVE. SHE WOULD PLAY CARDS WITH FRIENDS AND HAVE LUNCH OUT,SEVERAL TIMES PER WEEK. SHE WAS INDEPENDENT WITH HER ADLS. HAS A FWW SHE DOES USE AT HOME AND CPAP THAT IS HERE IN ROOM. DAUGHTER STATED SHE WORKS BUT CAN ARRANGE HER SCHEDULE AND BE ABLE TO ASSIST PT.WHEN SHE GOES HOME IF NEEDED. PT.SAID SHE ALSO HAS FRIENDS THAT CAN HELP HER. CM WILL FOLLOW FOR A SAFE DISCHARGE PLAN.
--- NOTE | 2019-09-05 16:42 | NUR ---
pt has participated with therapies and calls for assist as needed. prn for back and rt. hip pain given with fair effect. pt transferrs with assist of 1,walker and gaitbelt and queing.pt has been continent of bladder and uses bsc today. pt has eaten lunch in dinningroo,. pt is alert and orientated. dressing dry and intact to rt. hip.
--- NOTE | 2019-09-05 17:00 | NUR ---
DISCUSSED TEAM CONFERENCE WITH PT.AND DAUGHTER. RECOMMENDATIONS ARE TO RETEAM NEXT WEEK. THEY ARE AGREEABLE.
[2019-09-05 19:15] VITALS: BP 142/77
--- NOTE | 2019-09-06 05:19 | NUR ---
ASSUMED PT CARE AT 1930. PT ALERT AND ORIENTED X4, POLITE AND COOPERATIVE WITH CARES. PT UP TO BEDSIDE COMMODE WITH ASSIST OF 2 AND MUCH CUEING. ONE INCONTIENT VOID OVERNIGHT. TRAMADOL ONCE FOR RIGHT HIP PAIN. DRESSING TO RIGHT HIP WITH SMALL AMOUNT OF DRAINAGE BUT INTACT. PT SLEPT WELL OVERNIGHT, USED HOME CPAP UNTIL 0400. CALL LIGHT AND FREQUENTLY USED ITEMS IN REACH. USES CALL LIGHT APPROPRIATELY. HOURLY ROUNDING IN PROGRESS, WILL CONTINUE TO MONITOR.
[2019-09-06 08:30] VITALS: BP 132/58
--- NOTE | 2019-09-06 15:25 | NUR ---
PT HAS WORKED WITH THERAPIES AND AMBULATES WITH SLOW GAIT WITH WALKER,GAITBELT AND MIN ASSIST OF 1.DRESSING DRY AND INTACT TO RT. HIP. PRN FOR PAIN GIVEN WITH GOOD EFFECT. PT C/O RT.SHOULDER PAIN TODAY WITH HEAT AND COLD APPLIED. PT HAS BEEN CONTINENT OF BLADDER AND IS GIVEN DULCOLAX SUPP THIS AFTERNOON WITH NO RESULTS YET. PT REMAINS ALERT AND ORIENTATED.
--- NOTE | 2019-09-06 16:14 | NUR ---
SW met with pt and provided welcome folder and pt signed irf carmen consent form. SW to continue to follow to assist with safe dc planning.
[2019-09-06 20:14] VITALS: BP 128/74
--- NOTE | 2019-09-06 20:25 | NUR ---
RESTING QUIETLY IN BED AND TALKING ON THE CELL PHONE. DENIES PAIN AT THIS TIME. RIGHT HIP DRESSINGS DRY/INTACT. CALL LIGHT WITHIN REACH.
--- NOTE | 2019-09-07 04:58 | NUR ---
GAVE TRAMADOL AT 2300 FOR COMPLAINT OF RIGHT SHOULDER PAIN WITH RELIEF. NO FURTHER COMPLAINT OF PAIN. RESTED ON/OFF. INCONTINENT OF URINE WHEN AMBULATED TO THE BATHROOM VOIDED ON THE FLOOR THE ENTIRE WAY. JOSE GUADALUPE CARE GIVEN AND LEGS WASHED. WET CLOTHES REMOVED AND GOWN PLACED. HOURLY ROUNDING IN PROGRESS.
[2019-09-07 07:00] VITALS: BP 142/73
[2019-09-07 15:46] LABS: URINE BILIRUBIN NEGATIVE (Negative); URINE BLOOD TRACE (Negative); URINE CLARITY CLEAR; URINE COLOR YELLOW; URINE GLUCOSE-RANDOM NEGATIVE (Negative); URINE KETONES NEGATIVE (Negative); URINE LEUKOCYTES 1+ (Negative); URINE NITRITE NEGATIVE (Negative); URINE PROTEIN NEGATIVE (Negative); URINE SPECIFIC GRAVITY <= 1.005 (1.005-1.030); URINE UROBILINOGEN 0.2 E.U./dl (0.2-1.0)
[2019-09-07 15:57] LABS: SQUAMOUS 4-10 Moderate /LPF (0-3); URINE RBC None Seen /HPF (0-2)
[2019-09-07 15:58] LABS: BACTERIA None Seen /HPF (None Seen); CASTS None Seen /LPF (None Seen); CRYSTALS None Seen /LPF (None Seen); URINE WBC 6-15 Few /HPF (0-5)
--- NOTE | 2019-09-07 18:13 | NUR ---
ALERT AND ORIENTED X4. UP WITH 1 ASSIST, GAIT BELT AND WALKER. USING PO PAIN MEDICATION TO HELP WITH PAIN. DRESSING DRY AND INTACT OVER RIGHT HIP. RIGHT HIP AREA CONTINUES TO HAVE SOME SWELLING. SOME INCREASE SWELLING NOTED LOWER RIGHT THIGH AFTER BEING UP ALOT TODAY. WILL CONTINUE TO MONITOR. USES CALL LIGHT WITHIN REACH. FALL PRECAUTIONS IN PLACE. USES BED AND CHAIR ALARM.
[2019-09-07 20:00] VITALS: BP 131/53
--- NOTE | 2019-09-07 21:55 | NUR ---
ASSUMED CARE AT 1930. PATIENT RESTING IN RECLINER, PLAYING PITCH WITH AND FRIENDS IN DINING ROOM. TRANSPORTED PER RECLINER AND RETURNED TO ROOM AT 2100. UP WITH ONE, GAIT BELT, MIN LIFTING, WALKER, WBAT TO RLE. MUCH CUEING AND ENCOURAGEMENT TO WALK. HAD SMALL BM. DID OWN HYGIENE. STATES SHE WANTS TO USE THE BEDPAN THIS EVENING, REFUSING TO USE THE BSC REQUESTED. INSTRUCTED THAT SHE IS ON REHAB FLOOR, AND SHE WILL NOT DO THIS AT HOME AND OUR GOAL IS TO PREPARE HER FOR HOME. SHE RESPONDED THAT SHE STILL REFUSES TO USE ANYTHING OTHER THAN THE BEDPAN THROUGH NIGHT BECAUSE "WHEN I HAVE TO GO I HAVE NO TIME." AND "GIVE ME A COUPLE OF DAYS WHEN I CAN MOVE BETTER." PATIENT REMOVED OWN CLOTHES, WEARING HOSPITAL GOWN ONLY. DRESSINGS DRY TO RLE. LEFT AROUND 2129. NEEDS HELP GETTING LEGS INTO BED, BUT SHE CAN MOVE HERSELF UP IN BED WHEN IT IS FLAT USING HER ARMS. HOURLY ROUNDS CONTINUE. BED ALARM BARMAID LITE IN REACH.
--- NOTE | 2019-09-08 06:01 | NUR ---
SLEPT MOST OF THE NIGHT EXCEPT TO VOID. VOIDED PER BEDPAN DESPITED EDUCATION ABOUT REHAB GOALS. ENCOURAGED HER TO USE PULLUPS TONIGHT AND VOID PER BSC. LEGS ELEVATED ON PILLOWS, HEELS OFF BED. TAKES PILLS WHOLE WITH WATER. NO FURTHER C/O PAIN. RETURNED TO SLEEP AFTER LAST VOIDING AND AM MEDS. HOURLY ROUNDS CONTINUE. BED ALARM ON. CALL LITE IN REACH.
[2019-09-08 07:49] VITALS: BP 138/59
--- NOTE | 2019-09-08 16:30 | NUR ---
PT HAS PARTICIPATED WITH THERAPIES AND AMBULATES WITH WALKER AND MIN ASSIST OF 1.PT NEEDS ASSIST TO COME TO STANDING. PRN FOR PAIN GIVEN X2 WITH GOOD EFFECT. DRESSING DRY ANDINTACT TO RT. HIP. PT HAS KEPT LEGS ELEVATED TODAY AND WEARS DIVINA HOSE TO DECREASE EDEMA TO RT. LEG. PT CONTINENT OF B+B AND CALLS FOR ASSIST TO BATHROOM.PT REMAINS ALERT AND ORIENTATED.
[2019-09-08 20:05] VITALS: BP 135/64
--- NOTE | 2019-09-09 05:10 | NUR ---
ASSUMED PT CARE AT 1930. PT UP IN RECLINER VISITING WITH SIGNIFICANT OTHER AND FRIENDS. PT ALERT AND ORIENTED X4, POLITE AND COOPERATIVE WITH CARES. PT UP TO BEDSIDE COMMODE NUMEROUS TIMES TO VOID OVERNIGHT WITH MOD ASSIST, GAIT BELT AND WALKER. PT WEARING BRIEF FOR URGENCY. STOOL X1 THIS SHIFT. PRN PAIN MEDICATION ONCE THIS SHIFT. DRESSING TO RIGHT HIP DRY AND INTACT. DIVINA HOSE OFF AT HS. SOME SWELLING TO RIGHT LEG. USES CALL LIGHT APPROPRIATELY. HOURLY ROUNDING IN PROGRESS, WILL CONTINUE TO MONITOR.
[2019-09-09 08:03] VITALS: BP 124/56
--- NOTE | 2019-09-09 15:41 | NUR ---
pt has ambulated to bathroom and dinningroom with gaitbelt,walker and min assist of 1. dressing to rt. hip dry and intact. prn for pain given with good effect.pt remains continent of b+b,and is alert and orientated.
[2019-09-09 19:53] VITALS: BP 130/66
--- NOTE | 2019-09-10 05:24 | NUR ---
ASSUMED PT CARE AT 1930. PT ALERT AND ORIENTED X4, POLITE AND COOPERATIVE WITH CARES. PT UP WITH MIN ASSIST, GAIT BELT AND WALKER TO VOID X5 THIS SHIFT. STOOL X1. PRN PAIN MEDICATION ONCE WITH AM MEDS. PT SLEPT WELL OVERNIGHT, WORE HOME CPAP. USES CALL LIGHT APPROPRIATELY. BED ALARM ON FOR SAFETY. HOURLY ROUNDING IN PROGRESS, WILL CONTINUE TO MONITOR.
[2019-09-10 08:00] VITALS: BP 135/66
--- NOTE | 2019-09-10 16:25 | NUR ---
ASSUMMED CARE OF PT AT 0730, PT ALERT AND ORIENTED, TRANSFERS WITH ASSIST OF 1, GB AND WALKER, C/O PAIN IN RIGHT HIP, MEDICATED PER ORDER, RIGHT UPPER LEG SWOLLEN BUT SOFT, INNER THIGH BRUISED, ICE TO AREA, PT STATES IT IS MUCH BETTER THAN YESTERDAY, DISCUSSED WITH DR TRAVIS AND NO NEW ORDERS OBTAINED, TEDS ON, AMBULATES TO BATHROOM TO VOID, AMBULATED TO DININGROOM FOR LUNCH, PARTICIPATED IN AL THERAPIES, HOURLY ROUNDING COMPLETED, ASSESSMENT COMPLETE, WILL CONTINUE TO MONITOR.
[2019-09-10 19:15] VITALS: BP 148/72
[2019-09-11 04:34] LABS: HEMATOCRIT 28.4 % (37.0-47.0); HEMOGLOBIN 9.7 gm/dL (12.0-15.0); MCH 28.3 pg (26.0-34.0); MCHC 34.2 g/dL (28.0-37.0); MCV 82.8 fL (80.0-100.0); MPV 6.1 fl. (7.2-11.1); RBC 3.43 mil/uL (4.20-5.00); RDW-CV 17.1 % (10.5-14.5); WBC 7.8 thou/uL (4.0-11.0)
[2019-09-11 05:05] LABS: CALCIUM 7.9 mg/dL (8.5-10.1); CREATININE 0.8 mg/dL (0.6-1.3); MAGNESIUM 2.1 mg/dL (1.8-2.4); POTASSIUM 3.9 mmol/L (3.5-5.1)
--- NOTE | 2019-09-11 05:15 | NUR ---
ASSUMED CARES AT 1920. ALERT AND ORIENTED. PLEASANT. WBAT RLE. C/O PAIN TO RIGHT HIP/LEG. PAIN MEDS GIVEN NEEDED. ICE PACK TO RLE. MOD ASSIST WITH GAIT BELT AND WALKER. UP TO BATHROOM SEVERAL TIMES OVERNIGHT. PULLUPS. TEDS. SLEPT OFF AND ON. CALL LIGHT IN REACH AND BED ALARM ON.
[2019-09-11 07:30] VITALS: BP 148/66
--- NOTE | 2019-09-11 16:28 | NUR ---
ASSUMMED CARE OF PT AT 0730, PT ALERT AND ORIENTED, TRANSFERS WITH GB WALKER AND ASSIST OF 1, AMBULATES TO TOILET TO VOID, NO BM THIS SHIFT, PT C/O PAIN IN RIGHT HIP, BILATERAL KNEES, NECK, MEDICATED PER ORDER, LIDOCAINE PATCH ON RIGHT THIGH, OINTMENT APPLIED TO BILATERAL KNEES, ICE TO RIGHT THIGH ,TEARFUL THIS PM, STATES SHE HURTS ALL OVER AND HAS HAD PAIN FOR MANY YEARS AND NOT TOLERATING IT VERY WELL ANYMORE, REASSURANCE GIVEN, PT TAKING FOOD AND FLUIDS WELL.DRESSINGS TO RIGHT THIGH INTACT, TEDS TO BILATERAL LEGS, VISITORS THIS PM AND SPIRITS SEEM, BETTER, PARTICIPATED IN ALL THERAPIES, HOURLY ROUNDING COMPLETED, ASSESSMENT COMPLETE WILL CONTINUE TO MONITOR.
[2019-09-11 19:00] VITALS: BP 150/69
--- NOTE | 2019-09-11 19:50 | NUR ---
SITTING UP IN RECLINER VISITING WITH BOYFRIEND AND DAUGHTER AND WATCHING "THE VOICE". STATES WANTS TO WAIT UNTIL LATER TO TAKE PAIN MEDS. DID TAKE MOM MIXED WITH PRUNE JUICE. CALL LIGHT WITHIN REACH.
[2019-09-12 07:41] VITALS: BP 159/61
--- NOTE | 2019-09-12 14:27 | NUR ---
FOUZIA and Dr Bagley met with pt to review team conference summary and plan for pt to remain on rehab unit at least until Tuesday; possibly reteam with dc on next Monday 09/18. Pt okay with plan. SW to continue to follow to assist with safe dc planning. Pt reported that her boyfriend Corey should be able to stay with her if needed at dc.
--- NOTE | 2019-09-12 17:23 | NUR ---
ASSUMMED CARE OF PT AT 0730, PT ALERT AND ORIENTED, PT TRANSFERS WITH SBA, GB WALKER, AMBULATES TO BATHROOM, VOIDS IN GD AMOUNTS, C/O PAIN IN BILATERAL KNEES, NECK, INNER AND OUTER RIGHT THIGH, MEDICATED PER ORDER, LIDOCAINE PATCH TO INNER THIGH, OINTMENT APPLIED TO KNEES, ICE ON AT INTERVALS THRU OUT SHIFT,TEARFUL AT TIMES, HIP X/R OBTAINED, SEEN BY ORTHO, NO NEW ORDERS, TAKING FOOD AND FLUIDS WELL, PARTICPATED IN ALL THERAPIES, HOURLY ROUNDING COMPLETED, ASSESSMENT COMPLETE, WILL CONTINUE TO MONITOR.
[2019-09-12 20:00] VITALS: BP 144/65
--- NOTE | 2019-09-13 01:47 | NUR ---
ASSUMED CARE @ 1934-.SITS IN RECLINER W/ CHAIR ALARM ALREADY ON @ 1934.VISITING W/ SON & COUPLE FRIENDS @ THIS TIME.REFUSED ICE PACK & K PAD. WEARS PULL UPS.HOB UP.BED ALARM PUT ON @ 2114.SEE PAIN MANAGEMENT @ 2245. C PAP ON @ 2245.ON HOURLY ROUNDS.EXECUTIVE MANAGER DOING ODD HOUR ROUNDS.
--- NOTE | 2019-09-13 05:26 | NUR ---
SLEPT LATE @ 2335 & SLEEPING GOOD ALL NIGHT.TOOK ALL COFFEE,ONE CJ CHIP COOKIE & PIECE OF CHICKEN HS SNACKS.BRP W/ SBA X3 DURING NIGHT.WANTS C PAP OFF @ 0230.
[2019-09-13 07:22] VITALS: BP 144/65
[2019-09-13 08:02] VITALS: BP 144/65
[2019-09-13 20:05] VITALS: BP 139/50
--- NOTE | 2019-09-14 04:56 | NUR ---
ASSUMED PT CARE AT 1930. PT SITTING UP IN RECLINER CHATTING WITH VISITORS AT SHIFT CHANGE. PT TO SLEEP LATE. TYLENOL AT 2329 FOR RIGHT HIP PAIN. PT UP TO VOID X4, STOOL X1 THIS SHIFT. PT TRANSFERS WITH MIN ASSIST, GAIT BELT AND WALKER. TURNED WHEN AGREEABLE. PT WEARS PULLUPS FOR STRESS INCONTINENCE. WORE CPAP PART OF THE NIGHT. USES CALL LIGHT APPROPRIATELY. BED ALARM ON FOR SAFETY. HOURLY ROUNDING IN PROGRESS, WILL CONTINUE TO MONITOR.
[2019-09-14 07:45] VITALS: BP 136/69
--- NOTE | 2019-09-14 17:22 | NUR ---
PT HAS WORKED WITH THERAPIES AND AMBULATES WELL WITH WALKER GAITBELT AND MIN ASSIST OF 1. PRN FOR RT. HIP PAIN GIVEN WITH GOOD EFFECT. PT HAS AMBULATED IN [place] WITH STAFF THIS AFTERNOON. PT IS CONTINENT OF B+B AND REMAINS ALERT AND ORIENTATED. MICHELA REMOVED FROM RT. HIP THIS AM WITHOUT PROBLEM. INCISION HEALED WITH NO REDNESS OR DRAINAGE AND IS OPEN TO AIR.
[2019-09-14 20:00] VITALS: BP 142/62
--- NOTE | 2019-09-15 06:04 | NUR ---
ASSUMED CARE AT 1930. PATIENT STAYED IN DINING ROOM PLAYING CARDS WITH HER AND ANOTHER COUPLE UNTIL AFTER 2100. WANTED TO WATCH TV SHOW UNTIL AFTER 2200 BEFORE GOING TO BED. UP WITH SBA, GAIT BELT, WALKER. NEEDS SOME HELP GETTING LEGS IN/OUT OF BED. VOIDS PER TOILET AND DOES OWN CARES. TAKES PILLS WHOLE WITH WATER WITHOUT DIFF. MEDICATED FOR PAIN AT HS. USES ICE PACK TO THIGH ON RT LEG. RT HIP INCISIONS STITCHDOWN THREAD LASTER, C/D/I. HOURLY ROUNDS CONTINUE. BED ALARM ON. CALL LITE IN REACH.
[2019-09-15 07:00] VITALS: BP 169/59
[2019-09-15 13:00] VITALS: BP 148/78
--- NOTE | 2019-09-15 17:34 | NUR ---
ALERT AND ORIENTED X4, UP WITH GAIT BELT AND WALKER. WEIGHTBEARING TOLERATED. PO PAIN MEDICATION HELPFUL WITH RIGHT HIP PAIN. INCISION OPEN TO AIR WITH NO S/S OF INFECTION. DIVINA HOSE APPLIED TO LOWER EXTREMITIES. HAS 1+EDEMA TO RIGHT LOWER LEG. USES CALL LIGHT WITHIN REACH. FALL PRECAUTIONS IN PLACE. BED ALARM AND CHAIR ALARM USED.
[2019-09-15 20:00] VITALS: BP 150/63
--- NOTE | 2019-09-16 05:35 | NUR ---
ASSUMED CARES AT 1920. ALERT AND ORIENTED. PLEASANT. WBAT RLE. PAIN MEDS GIVEN NEEDED FOR RIGHT HIP PAIN. SBA WITH GAIT BELT AND WALKER. UP TO BATHROOM. SLEPT MOST OF THE NIGHT. CALL LIGHT IN REACH AND BED ALARM ON.
[2019-09-16 07:40] VITALS: BP 143/64
--- NOTE | 2019-09-16 14:33 | NUR ---
ASSUMED CARE AT 0730. ALERT ORIENTED PLEASANT COOPERATIVE. HX OF RT. HIP FX WBAT RLE. TRANSFERS WITH SBA G BELT WALKER. AMBULATES TO BR TO VOID ABLE TO DO HYGEINE AND CLOTHING ADJUSTMENTS. FEEDS SELF TAKES MEDS WITHOUT DIFFICULTY. MEDICATED X 3 TODAY RT. HIP PAIN PERHAPS MORE MUSCLE RELATED. PT. HAS MUSCLE RELAXER AT HS ORDERED. HEAT APPLIED AND ICE ALSO AT INTERVALS. INCISION HEALING CONSULTING GROUP ANALYST. TO FOR LUNCH MEAL APPETITE GOOD. AMBULATED X 2 IN HALLS AND TO
--- NOTE | 2019-09-16 17:20 | NUR ---
TO FOR SUPPER AFTER AMBULATING IN HALLS THIS AFTERNOON. VISITORS IN WITH PT.
[2019-09-16 19:30] VITALS: BP 142/58
--- NOTE | 2019-09-17 01:56 | NUR ---
ASSUMED CARE @ 1919-09/15-TUESDAY.AWAKE IN RECLINER W/ LE'S ON.K PAD TO RIGHT THIGH ON.BOY FRIEND/SO VISITING @ THIS TIME.PATIENT PLAYING BRIDGE ON HER TABLET.CHAIR ALARM ON ALREADY @ 1919.HOB UP.HEELS OFF BED.THIGH TEDS OFF @ 2129.patient prefers ice PACK TO RIGHT HIP @ 2129 & APPLIED.BED ALARM PUT ON @ 2129.WANTS SINK LIGHT ON ALL NIGHT.C PAP PUT ON BY PT-IND @ 2229.ON HOURLY ROUNDS.INVENTORY TRANSCRIBER DOING ODD HOUR ROUNDS.
--- NOTE | 2019-09-17 05:33 | NUR ---
SLEPT LATE @ 5-09/16-TUESDAY & SLEPT GOOD ALL NIGHT W/ C PAP.BRP W/ SBA X3.REFUSED HS SNACK.
[2019-09-17 07:28] VITALS: BP 133/75
--- NOTE | 2019-09-17 17:48 | NUR ---
ALERT AND ORIENTED X4. UP WITH STAND BY ASSIST, GAIT BELT AND WALKER. TEARFUL TODAY ABOUT SITUATION. USING PO PAIN MEDICATION TO HELP WITH RIGHT HIP PAIN. INCISION OPEN TO AIR WITH NO SIGNS OR SYMPTOMS OF INFECTION. USES CALL LIGHT WITHIN REACH. FALL PRECAUTIONS IN PLACE. BED ALARM AND CHAIR ALARM USED.
[2019-09-17 19:05] VITALS: BP 135/60
--- NOTE | 2019-09-18 05:00 | NUR ---
ASSUMED CARES AT 1920. ALERT AND ORIENTED. PLEASANT. WBAT RLE. MIN ASSIST WITH GAIT BELT AND WALKER. UP TO BATHROOM. PULLUPS. PAIN MEDS GIVEN NEEDED. NO ISSUES OVERNIGHT. CALL LIGHT IN REACH AND BED ALARM ON.
[2019-09-18 07:30] VITALS: BP 148/65
[2019-09-18] MEDS ORDERED: ASPIRIN325 PO (11:51)
--- NOTE | 2019-09-18 18:21 | NUR ---
PT MOD I IN ROOM BUT CALLS FOR ASSIST NEEDS. PT IS ALERT AND ORIENTATED AND PLANS TO DISCHARGE TO HOME TOMORROW. PRN FOR PAIN OF RT. HIP GIVEN WITH GOOD EFFECT.PT IS CONTINENT OF B+B.PT EATS DINNER IN DINNINGROOM.
[2019-09-18 19:15] VITALS: BP 144/57
--- NOTE | 2019-09-19 02:05 | NUR ---
ASSUMED CARE @ 1932-09/17-TU.SITS IN RECLINER W/ LE'S ON.WATCHING TV & PLAYING BRIDGE ON HER TABLET.BOY FRIEND/SO VISITING @ THIS TIME.CHAIR ALaRM ALREADY ON @ 1932.K PAD ON BACK.ICE PACK TO RIGHT HIP.LAST BM-09/15-SUN W/ MOD BM X1.PRN MOM 10 ML GIVEN ORAL @ 2022.hob up.refused c pap.bed alarm already on @ 2149. WANTS SINK LIGHT ON ALL NIGHT.SEE PAIN MANAGEMENTS @ 2236.REFUSED TO WEAR C PAP @ HS.MOD IND NOW BUT INSTRUCTED TO CALL FOR SBA DURING NIGHT.ON HOURLY ROUNDS.QUANTITATIVE ANALYST DEVELOPER DOING ODD HOUR ROUNDS.
[2019-09-19] MEDS ORDERED: NICOTINE TRANSD21 M1 TRANSDERM (03:45)
[2019-09-19] MEDS ORDERED: ROBAXIN 750 MG750 MG PO (03:49)
[2019-09-19] MEDS ORDERED: VOLTAREN GEL 1100 G1 TOP (03:53)
[2019-09-19] MEDS ORDERED: NEURO MAX85 GM TOP (03:56)
[2019-09-19] MEDS ORDERED: SUPER THERAVIT1 EACH PO (03:58)
--- NOTE | 2019-09-19 05:20 | NUR ---
SLEPT LATE @ 0000-09/18-WED.SLEPT GOOD AFTER 0000.BRP W/ SBA X3.REFUSED HS SNACK.FOR DISCHARGE TODAY-09/18-TUE.WEARS PULL UPS.
[2019-09-19 07:00] VITALS: BP 127/57
[2019-09-19 13:21] VITALS: BP 127/57
[2019-09-19 13:58] VITALS: BP 127/57
--- NOTE | 2019-09-19 13:59 | NUR ---
Team conference held today. Pt to dc home today with significant other support and friend support. Family training completed. Pt to have HH RN PT OT follow up at [place]; FOUZIA discussed options of agencies with pt and pt choice for [facility] so FOUZIA faxed referral and orders to [facility] intake. ph [phone]. Pt family to provide pt ride home. Pt has RW. Pt mod I with all tasks except supervision with stairs; pt will have supervision at home whenever needed.
--- NOTE | 2019-09-19 15:13 | NUR ---
ASSUMMED CARE OF PT AT 0730, PT ALERT AND ORIENTED ,FORGETFUL, MOD I IN ROOM, INCISION TO RIGHT HIP HEALING, C/O PAIN IN RIGHT HIP/GROIN, MEDICATED PER ORDER, TAKING FOOD AND FLUIDS WELL, PARTICIPATED IN ALL THERAPIES, HOURLY ROUNDING COMPLETED, ASSESSMENT COMPLETE, ORDERS OBTAINED FOR DISCHARGE, DISCUSSED HOME MEDICATIONS, FOLLOW UP APPTS, HOME HEALTH, FALL PRECAUTIONS, DIET WITH PATIENT AND SIGNIFICANT OTHER, STATE UNDERSTANDING OF INSTRUCTIONS, PRESCRIPTION FOR PAIN MED GIVEN TO PT, PT DISCHARGED TO MAIN ENTRANCE WITH BELONGINGS PER W/C WITH SIGNIFICANT OTHER.
== END 2019-09-19 14:30 | disposition home health service (06) | DRG 535 ==
LOC: M.REH 17:44
PROVIDERS: Internal Medicine; ADMIT Physical Medicine & Rehabilitation
DX: S72.141A Displaced intertrochanteric fracture of right femur, initial encounter for closed fracture (principal); A41.9 Sepsis, unspecified organism; N39.0 Urinary tract infection, site not specified; E44.0 Moderate protein-calorie malnutrition; Z88.8 Allergy status to other drugs, medicaments and biological substances; Z96.659 Presence of unspecified artificial knee joint; W18.39XA Other fall on same level, initial encounter; Y93.89 Activity, other specified; Y92.89 Other specified places as the place of occurrence of the external cause; Y99.8 Other external cause status; G47.33 Obstructive sleep apnea (adult) (pediatric); E03.9 Hypothyroidism, unspecified; Z68.21 Body mass index [BMI] 21.0-21.9, adult; M19.90 Unspecified osteoarthritis, unspecified site

== ENCOUNTER → 2020-02-27 | Outpatient (CLI) | payer MEDICARE ==
[~2020-02-27] MED LIST changes: +ASPIRIN325 PO; +NEURO MAX85 GM TOP; +NICOTINE TRANSD21 M1 TRANSDERM; +ROBAXIN 750 MG750 MG PO; +SUPER THERAVIT1 EACH PO; +VOLTAREN GEL 1100 G1 TOP
== END ==
LOC: M.LAB 12:00 → M.RAD 14:30
PROVIDERS: ATTEND Orthopaedic Surgery
DX: M85.89 Other specified disorders of bone density and structure, multiple sites (principal); N64.89 Other specified disorders of breast; I10 Essential (primary) hypertension

== ENCOUNTER → 2020-02-29 | Outpatient (CLI) | payer MEDICARE | LOC: M.CT 02-28 09:34 | PROVIDERS: ATTEND Orthopaedic Surgery | DX: M48.54XA Collapsed vertebra, not elsewhere classified, thoracic region, initial encounter for fracture (principal); M43.17 Spondylolisthesis, lumbosacral region; M48.04 Spinal stenosis, thoracic region; M43.27 Fusion of spine, lumbosacral region; M48.07 Spinal stenosis, lumbosacral region ==

== ENCOUNTER → 2020-03-07 | Outpatient (CLI) | payer MEDICARE | LOC: M.LAB 09:28 | PROVIDERS: ATTEND Internal Medicine Gastroenterology | DX: Z01.812 Encounter for preprocedural laboratory examination (principal); Z11.59 Encounter for screening for other viral diseases; R19.4 Change in bowel habit ==

== ENCOUNTER → 2020-03-13 | Day surgery (SDC) | payer MEDICARE ==
[~2020-03-13] MED LIST changes: +HYDROCHLOROTHIA25 M2 PO; +OCUVITE TABLET1 EAC1 PO
--- NOTE | ~2020-03-13 | PROC ---
[facility] [address] [place] [address] PROCEDURE REPORT Name: SALVADOR CARDOZA Room: [facility] M.R.#: [id number] Admission: 03/13/20 Attend Phys: Marcia Polanco MD Discharge: Date of : 40 Report #: [id number] THIS REPORT FOR: //name// cc: Marcello Mcdonnell DO Marcello Mcdonnell DO ~ THIS REPORT FOR: //name// For GI report, please see the Provation report in Perceptive 7 content. By: 0646Medical Records Staff SHRUTI /BLOSSOM
[2020-03-13 11:34] LABS: CALCIUM 8.7 mg/dL (8.5-10.1); CREATININE 0.7 mg/dL (0.6-1.3); MAGNESIUM 1.6 mg/dL (1.8-2.4); POTASSIUM 3.1 mmol/L (3.5-5.1)
--- NOTE | 2020-03-17 16:06 | PATH ---
[address] [address] PATHOLOGY RPT PROCEDURE Name: SALVADOR BERGMAN Room: [facility]..#: [id number] Admission: 03/13/20 Date of : 40 Discharge: Report #: [id number] Path Case #: [id number] [facility] Accession Number: [id number] . 01 Material submitted: . rectosigmoid junction - RECTUM SIGMOID POLYP . 02 Diagnosis: Rectum sigmoid polyp: - Hyperplastic polyp. (TIFFANIE:dre; 03/17/2020) [facility] 03/17/2020 1427 Local . 02 Electronically signed: . Cezar Montana MD, Pathologist NPI- [id number] . 01 Gross description: . The specimen is received in formalin, labeled "Salvador Bergman, rectum sigmoid polyp" and consists of 2 fragments of pink-robles tissue measuring 0.3 x 0.3 cm and 0.4 x 0.3 cm which are entirely submitted in A1. (SDY; 03/14/2020) SYU/SYU 03/14/2020 1142 Local . 02 Pathologist provided ICD-10: K63.5 . 02 CPT . 533319 Specimen Comment: A courtesy copy of this report has been sent to [phone], [facility]230- Specimen Comment: [phone] Specimen Comment: Report sent to / DR SIMMONS Performed at: [address], [place], [place] [id number] MD Uriel Watts MD Phone: [phone] Performed at: 02 [facility] [address], [place], [place] [id number] MD Cezar Montana MD Phone: [phone]
== END | disposition home or self-care (01) ==
LOC: M.LAB 05:11 → M.SUR 09:01 → M.LAB 16:28
PROVIDERS: Anesthesiology; ATTEND Internal Medicine Gastroenterology
DX: R10.32 Left lower quadrant pain (principal); R19.4 Change in bowel habit; K63.5 Polyp of colon; K57.30 Diverticulosis of large intestine without perforation or abscess without bleeding; K64.8 Other hemorrhoids; I10 Essential (primary) hypertension; K21.9 Gastro-esophageal reflux disease without esophagitis; Z98.890 Other specified postprocedural states; Z79.899 Other long term (current) drug therapy; Z88.8 Allergy status to other drugs, medicaments and biological substances

== ENCOUNTER → 2020-03-17 | Outpatient (CLI) | payer MEDICARE | LOC: M.RAD 03-12 15:23 | PROVIDERS: ATTEND Nurse Practitioner | DX: M54.9 Dorsalgia, unspecified (principal); M51.36 Other intervertebral disc degeneration, lumbar region; M43.16 Spondylolisthesis, lumbar region; S22.081A Stable burst fracture of T11-T12 vertebra, initial encounter for closed fracture; Z98.890 Other specified postprocedural states; X58.XXXA Exposure to other specified factors, initial encounter; Y93.89 Activity, other specified; Y92.89 Other specified places as the place of occurrence of the external cause; Y99.8 Other external cause status ==

== ENCOUNTER 2020-05-27 22:45 | Emergency (ER) | payer MEDICARE ==
[~2020-05-27] VITALS: Ht 160 cm; Wt 53.5 kg
[2020-05-27] MEDS ORDERED: CYCLOBENZAPRINE5 MG PO (23:02)
[2020-05-27] MEDS ORDERED: MOBIC7.5 MG PO (23:02)
[2020-05-27] MEDS ORDERED: REQUIP 1 MG TABL1 M1 PO (23:03)
[2020-05-27] MEDS ORDERED: ZANAFLEX4 M2 PO (23:03)
[2020-05-27] MEDS ORDERED: NEURONTIN 300M300 M2 PO (23:04)
[2020-05-28 00:25] LABS: ABSOLUTE BASOPHILS 0.1 thou/uL (0.0-0.2); ABSOLUTE EOSINOPHILS 0.4 thou/uL (0.0-0.7); ABSOLUTE LYMPHOCYTES 1.9 thou/uL (0.8-5.3); ABSOLUTE MONOCYTES 0.7 thou/uL (0.0-1.2); ABSOLUTE NEUTROPHILS 5.4 thou/uL (1.6-8.1); BASOPHILS 1.5 %; EOSINOPHILS 4.3 %; HEMATOCRIT 43.5 % (37.0-47.0); HEMOGLOBIN 14.3 gm/dL (12.0-15.0); LYMPHOCYTES 22.5 %; MCH 27.5 pg (26.0-34.0); MCV 83.3 fL (80.0-100.0); MONOCYTES 8.1 %; MPV 7.2 fl. (7.2-11.1); NUCLEATED RBCS 0 /100WBC; PLATELET COUNT* 289 thou/uL (150-400); POLYS 63.6 %; RBC 5.22 mil/uL (4.20-5.00); RDW-CV 17.3 % (10.5-14.5); WBC 8.5 thou/uL (4.0-11.0)
[2020-05-28 00:38] LABS: CALCIUM 9.2 mg/dL (8.5-10.1); CREATININE 0.9 mg/dL (0.6-1.3); POTASSIUM 3.6 mmol/L (3.5-5.1)
[2020-05-28 00:42] LABS: APTT 27.9 Seconds (25.0-31.3); PROTIME 10.3 Seconds (9.20-11.50)
[2020-05-28 00:43] LABS: ALBUMIN 3.7 g/dL (3.4-5.0); TOTAL BILIRUBIN 0.4 mg/dL (<0.1-1.0); TOTAL PROTEIN 7.6 g/dL (6.4-8.2)
[2020-05-28] MEDS ORDERED: ZESTRIL2.5 MG PO (01:20)
[2020-05-28 01:51] VITALS: BP 156/76
--- NOTE | 2020-05-28 10:51 | EKG ---
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
== END 2020-05-28 01:51 | disposition home or self-care (01) ==
LOC: M.ERS 22:45
PROVIDERS: Personal Emergency Response Attendant
DX: I16.0 Hypertensive urgency (principal); K21.9 Gastro-esophageal reflux disease without esophagitis; I10 Essential (primary) hypertension; F17.210 Nicotine dependence, cigarettes, uncomplicated; Z88.1 Allergy status to other antibiotic agents; Z88.5 Allergy status to narcotic agent; Z87.440 Personal history of urinary (tract) infections

== ENCOUNTER → 2020-12-02 | Outpatient (CLI) | payer MEDICARE ==
[~2020-12-02] MED LIST changes: +CYCLOBENZAPRINE5 MG PO; +MOBIC7.5 MG PO; +NEURONTIN 300M300 M2 PO; +REQUIP 1 MG TABL1 M1 PO; +ZANAFLEX4 M2 PO; +ZESTRIL2.5 MG PO
[2020-12-02 10:18] LABS: ABSOLUTE BASOPHILS 0.1 thou/uL (0.0-0.2); ABSOLUTE EOSINOPHILS 0.2 thou/uL (0.0-0.7); ABSOLUTE LYMPHOCYTES 1.6 thou/uL (0.8-5.3); ABSOLUTE MONOCYTES 0.8 thou/uL (0.0-1.2); ABSOLUTE NEUTROPHILS 5.6 thou/uL (1.6-8.1); BASOPHILS 1.2 %; EOSINOPHILS 2.7 %; HEMATOCRIT 47.7 % (37.0-47.0); HEMOGLOBIN 16.2 gm/dL (12.0-15.0); LYMPHOCYTES 19.5 %; MCHC 34.1 g/dL (28.0-37.0); MCV 88.1 fL (80.0-100.0); MONOCYTES 9.1 %; NUCLEATED RBCS 0 /100WBC; PLATELET COUNT* 320 thou/uL (150-400); POLYS 67.5 %; RBC 5.41 mil/uL (4.20-5.00); RDW-CV 16.5 % (10.5-14.5); WBC 8.3 thou/uL (4.0-11.0)
[2020-12-02 10:29] LABS: APTT 26.5 Seconds (25.0-31.3); PROTIME 10.3 Seconds (9.20-11.50)
[2020-12-02 10:31] LABS: ALBUMIN 3.9 g/dL (3.4-5.0); CALCIUM 10.4 mg/dL (8.5-10.1); CREATININE 0.8 mg/dL (0.6-1.3); POTASSIUM 3.8 mmol/L (3.5-5.1); TOTAL BILIRUBIN 0.6 mg/dL (<0.1-1.0); TOTAL PROTEIN 7.9 g/dL (6.4-8.2)
[2020-12-02 11:17] LABS: ESR (SEDRATE) 6 mm/hr (0-30)
--- NOTE | 2020-12-02 11:28 | EKG ---
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
== END ==
LOC: M.LAB 12-01 10:25
PROVIDERS: ATTEND Orthopaedic Surgery
DX: Z01.812 Encounter for preprocedural laboratory examination (principal); I51.7 Cardiomegaly

== ENCOUNTER 2020-12-11 06:02 | Inpatient (IN) | payer MEDICARE ==
[~2020-12-11] VITALS: Ht 160 cm; Wt 54.4 kg
--- NOTE | ~2020-12-11 | OP ---
[address] [address] OPERATIVE REPORT Name: SALVADOR CARDOZA Room: [address] IN M.R.#: [id number] Admission: 12/13/20 Attend Phys: Fritz Jensen Discharge: 12/15/20 Date of : 40 Report #: [id number] THIS REPORT FOR: cc: María Daniels Ahmad W. DO Paul, Robert F. DO ~ DOC #: [id number] Cruzito Zarate DO DATE OF SURGERY: 12/11/2020 PREOPERATIVE DIAGNOSIS: Left knee degenerative joint disease. POSTOPERATIVE DIAGNOSIS: Left knee degenerative joint disease. PROCEDURE PERFORMED: Left total knee arthroplasty with Biomet Vanguard total knee system with the following components: 1. A 62.5 mm posterior stabilizing open box cemented femur. 2. A 71 mm cemented tibial baseplate. 3. A 10 mm posterior stabilizing plus polyethylene liner. 4. A 31 mm asymmetric all-poly cemented patella. SURGEON: Cruzito Zarate DO TITLE INVESTIGATOR: Julian Rangel DO ANESTHESIA: MAC and regional block by anesthesia. FLUIDS: Crystalloid. ESTIMATED BLOOD LOSS: 100 mL. DRAINS: None. SPECIMENS: None. COMPLICATIONS: None. CONDITION: Stable to PACU. DISPOSITION: Recovery in PACU and transferred to Med/Surg. ANTIBIOTICS: 600 mg of clindamycin IV. INDICATIONS FOR PROCEDURE: The patient is an 80-year-old female with longstanding left knee pain, which has been refractory to conservative management. Radiographs have demonstrated severe tricompartmental [facility] [address] [place] [address] OPERATIVE REPORT Name: SALVADOR CARDOZA Room: [address] [place] .R.#: [id number] Admission: 12/13/20 Attend Phys: Fritz Jensen Discharge: 12/15/20 Date of : 40 Report #: [id number] osteoarthritis with associated valgus alignment. The patient reports that the pain is significantly hindered her ability to perform activities of daily living, quality of life, and overall peace of mind. Therefore, due to her lack of relief from conservative management, surgical intervention was discussed pertaining to the left total knee arthroplasty. Surgical risks, benefits and complications were discussed pertaining to but not limited to infection, bleeding, neurovascular injury, postoperative stiffness, DVT, PE, need for repeat surgical intervention, OK, adverse reaction to general anesthesia and even . The patient expressed understanding and elected to proceed. DESCRIPTION OF PROCEDURE: The patient was met in the preoperative holding area and once again surgical risks, benefits, complications were discussed. The patient expressed understanding and consent was obtained. Left lower extremity was then marked. The patient was transferred to the operative suite, and placed in supine position on a well-padded operative table. The patient was given the benefit of general anesthesia at this point in time. A well-padded tourniquet was placed on the left thigh. The left lower extremity was then prepped and draped in sterile fashion. At this time, a timeout was performed to denote correct patient, laterality, procedure to be performed, and IV antibiotics. All attendance were in agreement. At this point in time, the tourniquet was raised to 300 mmHg for approximately 65 minutes. The procedure began with a standard midline anterior incision down to the level of the capsule with a 10 blade. At this time, Once the capsule was appropriately visualized, the new knife was obtained to perform a standard medial parapatellar arthrotomy. At this point in time, the patella was everted and the fat pad was debrided along with the anterior horns of the medial and lateral meniscus. A periosteal sleeve was developed along the medial aspect of the tibia. Then, a drill was used to gain access to the intramedullary canal of the femur. Next, the intramedullary distal femoral cutting guide was placed and approximately 5 degrees of valgus and a 10 mm resection. The distal femur was then cut without difficulty. Attention was then turned towards the proximal tibial cut. The extramedullary tibial guide was aligned along the center of the ankle to the tibial crest and medial third of the tibial tubercle. We measured approximately 8 mm off of the high side. We dialed in appropriate slope and appropriate coronal alignment at this point in time. We then placed a third cross pin to stabilize the block. The proximal tibial cut was performed with retractors able to prevent all ligamentous and neurovascular structures. We then checked the extension gap with a 10 mm space block with minimal play noted medially. We then turned our attention back to the distal femur. We sized the distal femur appropriately and drilled an approximately 4 mm of external rotation, referencing the transepicondylar axis. We then malleted a 4-in-1 cutting block and made our anterior, posterior and chamfer cuts. We then prepared our distal femoral block with the reamers. Excess bony tissue and osteophytes were rongeured at this point in time. We then placed our trial tibial baseplate in appropriate rotation and this was held into place with two nails. We then placed our [address] [address] OPERATIVE REPORT Name: SALVADOR CARDOZA Room: [facility] IN [place]#: [id number] Admission: 12/13/20 Attend Phys: Fritz Jensen Discharge: 12/15/20 Date of : 40 Report #: [id number] femoral trial. We also placed a 10 mm spacing block and brought this out into full extension. This was determined to be in full extension and greater than 125 degrees of flexion. Excellent stability was noted in mid flexion, but there was continued play noted with valgus stress. Therefore, we then turned our attention to the patellar cut, which was cut in freehand fashion. We sized this appropriately and this was determined to track well. The patella and femoral trials were then removed. We then reamed and punched in preparation for the tibial keel. The tibial trial was then removed and we injected approximately 60 mL of local orthopedic pain cocktail into the posterior capsule and periosteum. There was a small area on the posterior medial and lateral aspect of the tibial plateau, which was drilled into the sclerotic bone. The knee was then thoroughly irrigated. Final components were placed on the back table. Cement was mixed and pressured on the back table, and placed into the backside of the final components. Cement was then placed onto all bony ends and pressed to allow for interdigitation. We then placed the final tibial, femoral and patellar components. They were impacted into place and excess cement was removed. We then placed a 10 trial articular spacer, which was again found to have excellent range of motion with minimal play noted with valgus stress. We then selected a 10 mm final posterior stabilizing plus poly. We removed the trial poly and all residual cement on the backside of the knee. We then irrigated and dried the tibial baseplate. Then, we placed a final polyethylene component, which was secured into place with a cross bar with palpable and audible click. The patient was once again taken through range of motion and determined to have excellent stability noted with varus and valgus stress along with full extension, greater than 125 degrees of flexion. We then thoroughly irrigated the wound and approximately 1 gram of vancomycin powder was placed inside the capsule and half outside of the capsule. The capsule was then closed with the use of #1 Vicryl and #1 running Stratafix suture. We then reapproximated the subcutaneous tissue with 2-0 Monocryl, single interrupted fashion. Next, the 3-0 Stratafix was used for a running subcuticular stitch. Surgical glue was placed on the skin, allowed to dry. The incision site was then dressed with sterile Mepilex dressing. The patient tolerated the tolerated the procedure well. Tourniquet was let down at 300 mmHg for approximately 65 minutes. The patient was transferred to the PACU in stable condition. All counts were correct x 2. I can attest that Dr. Zarate was present and scrubbed throughout all critical aspects of the case. Cruzito Zarate DO RFP/DEMETRI[place] [address] OPERATIVE REPORT Name: SALVADOR CARDOZA Room: [address] M.R.#: [id number] Admission: 12/13/20 Attend Phys: Fritz Jensen Discharge: 12/15/20 Date of : 40 Report #: [id number] By: [id number] Zarate DO /narcisa
[~2020-12-11 06:02] MED LIST changes: -HYDROCHLOROTHIA25 M2 PO
[2020-12-11 08:21] VITALS: BP 127/77
[2020-12-11 12:04] VITALS: BP 136/60
[2020-12-11 16:00] VITALS: BP 133/68
[2020-12-11 20:00] VITALS: BP 131/70
[2020-12-12 00:15] VITALS: BP 142/80
[2020-12-12 04:11] VITALS: BP 124/64
[2020-12-12 04:49] LABS: HEMATOCRIT 35.8 % (37.0-47.0); HEMOGLOBIN 12.1 gm/dL (12.0-15.0)
--- NOTE | 2020-12-12 05:41 | NUR ---
PT A&O X 4. VSS ON 3-4L WITH CONTINUOUS PULSE OX MONITOR. MEDS GIVEN ORDERED. PAIN MANAGED WITH OXY IR AND SCHEDULED TRAMADOL. DRESSING TO LT KNEE C/D/I. UP TO BSC WITH MINIMUM ASSIST. IVF INFUISING. WILL CONTINUE TO MONITOR.
[2020-12-12] MEDS ORDERED: OXYCODONE HCL 55 MG PO (09:20)
[2020-12-12] MEDS ORDERED: ELIQUIS5 MG PO (09:20)
[2020-12-12 09:28] VITALS: BP 124/64
--- NOTE | 2020-12-12 09:34 | NUR ---
Pt is A&O. Resides at home alone. Independent. Pt uses a walker for mobility. Has a home cpap. Hx of [facility]. Hx of [facility]U. Pt discharging to home today, CM discuss HH, Pt wants to use [facility]. Faxed referral.
[2020-12-12 10:00] VITALS: BP 134/68
--- NOTE | 2020-12-12 10:15 | NUR ---
RECEIVED O.T. ORDER. WILL DEFER TO P.T. PLEASE ORDER FURTHER O.T. SERVICES IF NEEDED.
[2020-12-12 16:00] VITALS: BP 129/66
--- NOTE | 2020-12-12 17:59 | NUR ---
PT HAS BEEN UP TO CHAIR AND BACK TO BED SEVERAL TIMES TODAY. STATES PAIN IS 7-8/10 WITH MOVEMENT. THIS AM IT WAS REPORTED THAT PT HAD DROPPED ENQUE PUMP SEVERAL TIMES DURING THE NIGHT AND TODAY WE NOTICED THE WIRE WAS NOT CONNECTED. THE PUMP WAS REMOVED. PT HAS BEEN TAKING GOOD PO FLUIDS AND EATING MOST OF HER MEAL TRAYS. HER DAUGHTER MENTIONED THAT PT IS A HEAVY SMOKER AT HOME, PT DOES NOT CURRENTLY REQUEST ANYTHING FOR THIS. PT HAS BEEN UP TO BSC MANY TIMES TODAY AND IS A BIT UNSTEADY WITH HER GAIT. SHE IS ANXIOUS ABOUT GOING HOME JUST YET SHE LIVES ALONE AND HAS A LARGE HOME
[2020-12-12 21:05] VITALS: BP 143/61
[2020-12-13 04:40] LABS: HEMATOCRIT 36.1 % (37.0-47.0); HEMOGLOBIN 12.1 gm/dL (12.0-15.0)
--- NOTE | 2020-12-13 05:26 | NUR ---
PT ALERT AND ORIENTED, PAIN MANAGED WITH SCHEDULED TRAMADOL AND PRN OXYCODONE. SHE SATS 90% ON ROOM AIR, USED CPAP WHILE SLEEPING. SHE RECEIVED ALL MEDS SCHEDULED AND IS TOLERATING FLUIDS/FOOD WELL. SHE HAS KEPT KNEE ON ICE PACK, DIVINA VILLALTA, SCD'S. SHE SLEPT WELL THIS SHIFT AND IS AMBULATING WELL WITH ASSISTANCE.
[2020-12-13 07:30] VITALS: BP 106/45
[2020-12-13 16:51] VITALS: BP 130/64
--- NOTE | 2020-12-13 16:57 | NUR ---
CM SPOKE TO PT TO DISCUSS SNF PLACEMENT PER PHYSICIAN RECOMMENDATIONS. PT IN AGREEMENT. CM PROVIDED SNF LIST, AND PT CHOSE [facility]. [facility] ACCEPTS PT AND ABLE TO ACCEPT PT TOMORROW PENDING BED AVAILABILITY. RN WILL NEED TO CALL REPORT AND FAX PT'S D/C ORDERS TO [facility] AT D/C. CM WILL REMAIN AVAILABLE TO ASSIST AND FOLLOW NEEDED.
--- NOTE | 2020-12-13 18:14 | NUR ---
PT ALERT AND ORIENTED. REMAINS FORGETFUL AT TIMES. PT RESTING IN BED WITH POLAR PACK ON LEFT KNEE. PT UP TO BEDSIDE COMMODE WITH GAIT BELT, WALKER, AND ONE PERSON ASSIST. WEAKNESS GETTING UP TO BEDSIDE COMMODE. PT UNABLE TO AMBULATE WELL TODAY. PT UNABLE TO STAND WITHOUT ASSIST. PT ALMOST FELL AND WAS CAUGHT BY GAIT BELT AND DID NOT FALL. PT VERY WEAK WITH LEFT LEG. PT DOES NOT FEEL SAFE TO GO HOME. PT WORKED WITH CASE MANAGEMENT TODAY. PT HAS DECIDED ON [facility]. PT TO BE DISCHARGED TOMORROW. SIGNIFICANT OTHER IN THE ROOM AND IS AWARE OF PLAN TO DISCHARGE TO REHAB TOMORROW. FALL PRECAUTIONS REMAIN IN PLACE. CALL LIGHT WITHIN REACH. WILL CONTINUE TO MONITOR.
--- NOTE | 2020-12-14 05:20 | NUR ---
PT NOT AMBULATING WELL AT ALL. IT TAKES SOME TIME TO GET OUT OF BED, SHE IS UNABLE TO USE UPPER BODY TO GET MOVING. PAIN SEEMS WELL MANAGED, TAKING SCHEDULED TRAMADOL AND OXYCODONE PRN. SHE IS ABLE TO GET UP TO BEDSIDE COMMODE WITH EXTRA TIME. SHE IS ALERT AND ORIENTED, USES CPAP AT NIGHT. O2 IS 90% ON ROOM AIR. SHE RECEIVED ALL MEDS SCHEDULED.
--- NOTE | 2020-12-14 12:09 | NUR ---
Spoke with admissions at [facility]. They do not have a bed today. They may have a bed tomorrow but more likely Tuesday. JESUSITA Parr updated who informed patient.
--- NOTE | 2020-12-14 12:50 | NUR ---
KISHAN FROM [facility] ACCEPTED PATIENT FOR TOMORROW AND WILL SAVE A BED. VANNESA AND DR. BRYAN NOTIFIED.
[2020-12-14 15:39] VITALS: BP 136/68
--- NOTE | 2020-12-14 18:23 | NUR ---
PT ALERT AND ORIENTED X 2-3 AND FORGETFUL. PT WEAK WHEN GETTING UP. THIS AM PT USED WALKER TO GO TO THE BR WITH ASSISTANCE AND GAIT BELT. PT NOW ONLY GETTING UP TO THE BEDSIDE COMMODE WITH ASSIST. PT UNSTEADY. COUGH HAS WORSENED THIS SHIFT. DR. BRYAN CONSULTED AND CXR ORDERED ALONG WITH BREATHING TREATMENTS. PT'S SIGNIFICANT OTHER STATES PATIENT SMOKES AT LEAST 2 PPD. PT CONFUSED AT TIMES. NON PRODUCTIVE COUGH NOTED. IV'S REMAIN S/L. PER REPORT PT IS HALLUCINATING AND IMAGINING THERE ARE CIGARETTES ARE IN THE ROOM AND STATES SHE WANTS TO SMOKE. MD CONTACTED. ALSO NOTED PT DRIBBLING URINE MORE AND THE PAD HAS BEEN WET X2. FALL PRECATIONS IN PLACE. SIGNIFICANT OTHER AT BEDSIDE. WILL CONTINUE TO MONITOR.
[2020-12-14 21:21] VITALS: BP 112/56
[2020-12-14 23:12] LABS: URINE BILIRUBIN NEGATIVE (Negative); URINE BLOOD TRACE (Negative); URINE CLARITY SL CLOUDY; URINE COLOR YELLOW; URINE GLUCOSE-RANDOM NEGATIVE (Negative); URINE KETONES NEGATIVE (Negative); URINE LEUKOCYTES 3+ (Negative); URINE NITRITE POSITIVE (Negative); URINE PROTEIN NEGATIVE (Negative); URINE SPECIFIC GRAVITY <= 1.005 (1.005-1.030); URINE UROBILINOGEN 0.2 E.U./dl (0.2-1.0)
[2020-12-14 23:20] LABS: SQUAMOUS 0-3 Few /LPF (0-3); URINE RBC 0-2 Rare /HPF (0-2); URINE WBC >25 Many /HPF (0-5); WBC CLUMPS Few (None Seen)
[2020-12-14 23:21] LABS: BACTERIA >30 Many /HPF (None Seen); CASTS None Seen /LPF (None Seen); CRYSTALS None Seen /LPF (None Seen); MUCUS 0-3 Light strn/LPF (None Seen)
--- NOTE | 2020-12-15 03:59 | NUR ---
PT HAVING ISSUES WITH WEAKNESS AND MOBILITY. SHE IS HAVING A HARD TIME TRANSFERRING FROM THE BED TO THE COMMODE. WHEN I ASKED HER WHY SHE IS HAVING SUCH A HARD TIME SHE SAYS BECAUSE SHE IS DOWN IN THE DUMPS. PAIN SEEMS WELL MANAGED, SHE SAYS IT ONLY HURTS WHEN SHE MOVES IT A LOT. SHE IS ON ROOM AIR DURING THE DAY AND SAT 90-92% AND USING CPAP AT NIGHT. SHE IS ALERT AND ORIENTED FOR THIS SHIFT. I DID NOT WITNESS ANY CONFUSION FROM HER. SHE SLEPT WELL THIS SHIFT AND RECEIVED ALL MEDS SCHEDULED.
[2020-12-15 08:00] VITALS: BP 127/60
[2020-12-15] MEDS ORDERED: CIPRO250 M2 PO (08:29)
--- NOTE | 2020-12-15 09:53 | NUR ---
ACCEPTED TO [facility]. THEY WILL COORDINATE [employer] FOR 1400.
[2020-12-15 10:01] VITALS: BP 127/60
== END 2020-12-15 17:15 | DRG 470 ==
LOC: M.ORTHSURG 06:02 → M.TBA 06:05 → M.ORTHSURG 06:24
PROVIDERS: Internal Medicine; Orthopaedic Surgery; ADMIT Internal Medicine; ATTEND Internal Medicine
DX: M17.12 Unilateral primary osteoarthritis, left knee (principal); J98.11 Atelectasis; N39.0 Urinary tract infection, site not specified; R09.02 Hypoxemia; F17.210 Nicotine dependence, cigarettes, uncomplicated; Z96.651 Presence of right artificial knee joint; Z88.5 Allergy status to narcotic agent; Z79.899 Other long term (current) drug therapy; Z98.42 Cataract extraction status, left eye; Z98.41 Cataract extraction status, right eye

== ENCOUNTER 2021-01-23 10:39 | Emergency (ER) | payer MEDICARE ==
[~2021-01-23] VITALS: Ht 160 cm; Wt 68.0 kg
[~2021-01-23 10:39] MED LIST changes: +CIPRO250 M2 PO; +ELIQUIS5 MG PO
[2021-01-23 11:51] VITALS: BP 131/70
== END 2021-01-23 11:52 | disposition home or self-care (01) ==
LOC: M.ERS 10:39
DX: M25.561 Pain in right knee (principal); G89.18 Other acute postprocedural pain